=== PATIENT | male | born 1965 | race Caucasian/White ===

== ENCOUNTER 2017-03-15 17:30 | Inpatient (IN) ==
[2017-03-15] MEDS ORDERED: 0.9 % Sodium Chloride 1,000 ML IVC ONE ×5 (17:53→22:22)
[2017-03-15] MEDS ORDERED: *HR* Morphine 2 MG/ML SYRINGE IVP ONE ×2 (18:39→20:00)
[2017-03-15] MEDS ORDERED: Ondansetron 4 MG/2 ML VIAL IVP ONE (18:39)
[2017-03-15 18:46] LABS: Hematocrit 52.1 % (37.5-50.1); Hemoglobin 18.1 g/dL (12.9-16.9); Mean Corpuscular HGB Conc 34.7 g/dL (31.6-35.5); Mean Corpuscular Hemoglobin 30.4 pg (28.0-33.3); Mean Corpuscular Volume 87.4 fL (83.0-100.0); Mean Platelet Volume 9.3 fL (9.4-12.4); Platelet Count 205 K/mcL (140-400); Red Blood Count 5.96 M/mcL (4.19-5.50); Red Cell Distribution Width 12.2 % (11.5-14.5)
[2017-03-15 19:04] LABS: Alanine Aminotransferase 22 Units/L (0-55); Albumin 3.3 g/dL (3.5-5.0); Albumin/Globulin Ratio 0.9 (1.1-2.2); Alkaline Phosphatase 61 Units/L (38-126); Aspartate Amino Transferase 18 Units/L (5-34); BUN/Creatinine Ratio 18 (6-26); Bilirubin,Direct 0.5 mg/dL (0.0-0.5); Bilirubin,Indirect 0.5 mg/dL (0.0-1.2); Blood Urea Nitrogen 21 mg/dL (8-26); Calcium 9.1 mg/dL (8.6-10.8); Carbon Dioxide 20 mEq/L (19-29); Chloride 94 mEq/L (98-109); Globulin 3.7 g/dL (2.4-3.5); Glucose 146 mg/dL (70-99); Osmolality,Calculated 272 (280-300); Potassium 3.9 mEq/L (3.5-4.5); Sodium 128 mEq/L (136-145); eGFR For African Americans > 60 (> 60); eGFR For Non-African Americans > 60 (> 60)
[2017-03-15 19:05] LABS: C-Reactive Protein 225 mg/L (Less than 5)
[2017-03-15] MEDS ORDERED: Aspirin 81 MG TAB.CHEW PO STA (19:06)
--- NOTE | 2017-03-15 19:20 | Emergency Department Note ---
Disposition Clinical Impression: SIRS (systemic inflammatory response syndrome), Fever of unknown origin, Elevated troponin, Lactic acidosis, Leukocytosis, unspecified, Sinus tachycardia , Myalgia Disposition: Admitted As Inpatient Condition: Fair General Adult HPI - General Chief complaint: ED General Medical Stated complaint: Headache, having a hard time walking, fever Time Seen by Provider: 03/15/17 17:47 Source: patient, family Limitations: no limitations Nursing Notes Reviewed: Yes Vital Signs Reviewed: Yes - History of Present Illness Pain Scale: 10 - Related Data Home Medications Medication Instructions Recorded Confirmed Acetaminophen [Tylenol] 650 mg PO Q6HR PRN 03/15/17 03/15/17 Aspirin Enteric Coated [Aspirin EC] 81 mg PO DAILY 03/15/17 03/15/17 Allergies Allergy/AdvReac Type Severity Reaction Status Date / Time Anthrax Vaccine Allergy Swelling Verified 09/27/15 08:46 of Lip/Tongue/Throat Penicillins [PCN] Allergy Hives Verified 09/27/15 08:46 Past Medical History - Past Medical History Medical history: Reports: no medical history Surgical history: Reports: appendectomy Psychiatric history: Reports: anxiety - Social History Smoking Status: Former smoker Smokeless Tobacco Status: No Alcohol use: Reports: none Drug use: Reports: none Physical Exam - General Limitations: no limitations General appearance: alert, in no apparent distress Course - Reevaluation(s) Reevaluation #1: Patient is a 51-year-old white male is brought in by his today for reports of "not feeling well" since Wednesday evening. Patient denies any medical history except for some chronic low back pain for which she takes Vicodin prescribed by his family doctor. Patient states that he was seen earlier today in the urgent care and was diagnosed with possible strep pharyngitis as well as bronchitis. Patient was prescribed Amoxil. Patient denies having any nasal congestion, no sore throat, no cough. Patient reports subjective fevers at home with chills, reports she checked his temperature yesterday and it was T-Max equals 104 degrees. Patient just complains of generalized body aches bilateral hip pain and generalized low back pain. Patient denies any cold or cough symptoms, does complain of general malaise and fatigue. Patient denies any form of chest pain pressure or heaviness, no shortness of breath but states that he feels like his "lungs are burning", patient describes it as if he is outside on a really cold day and when you breathe in and have a burning sensation in her throat this is what he feels like. Patient denies any abdominal pain back or flank pain, no urinary symptoms, no bowel changes. Patient did have 1 isolated episode of nonbloody nonbilious emesis yesterday while he was taking a shower. Patient is very vague with his symptoms and the only thing he repeatedly complains of is generalized body aches and hip pain. Patient is tachycardic and hypotensive on arrival to the ED and has received 1 L of fluids with improvement in his blood pressure to 97 systolic. Patient receiving a second liter of fluids at this time in obtaining a second line general labs including cultures have been ordered including chest x-ray and EKG. Reevaluation #2: Was notified by lab of patient's elevated troponin at 0.3. Went to immediately reassessed the patient, patient resting comfortably at bedside and currently denies any form of chest pain pressure or heaviness. Patient still describes this burning sensation in his throat with breathing but denies actual shortness of breath. Repeat EKG was obtained which shows sinus tachycardia at 119 bpm left axis deviation and poor R-wave progression across the anterior leads possible old septal changes and on repeat EKG similar findings but on repeat showing some mild ST depression in the inferior leads. Awaiting remainder of labs. Patient receiving baby aspirin at this time and denying chest pain or pressure. Time: 19:23 Reevaluation #3: Patient's blood pressure is responding to IV fluids. Patient's systolic blood pressure on my assessment is 103 and 30 L infusing currently. IV antibiotics, broad-spectrum has been initiated with unclear etiology 2 possible infection. Repeat lactate is starting to trend downward. I first contacted cardiology and spoke with Dr. Morel, I discussed the case with him including patient's elevated troponin, abnormal second EKG, as well as patient with no complaints of chest pain throughout his ED course. Dr. Morel feels most likely viral etiology versus early sepsis and recommends serial troponins and he will consult on the patient. I spoke Dr. Morel at 8:35 PM area and then spoke with Dr. Dill, hospitalist, at 8:53 PM and discussed patient's case as possible early sepsis with unknown etiology. On speculum antibiotics IV of been initiated, blood cultures and urine cultures been obtained and is pending, patient is responding to IV fluids. Hospitalist agrees with management up to this point and also notified them of cardiology consult from the ED. Hospitalist accepted patient for admission. Patient's condition remains tenuous at this point, we will continue to monitor vitals while in the ED. Vital Signs Temperature 98.2 F 03/15/17 17:33 Pulse Rate 122 03/15/17 17:33 Respiratory Rate 18 03/15/17 17:33 Blood Pressure 82/58 03/15/17 17:33 O2 Sat by Pulse Oximetry 99 03/15/17 17:33 Temperature 99.2 F 03/15/17 22:44 Pulse Rate 111 03/15/17 22:44 Respiratory Rate 16 03/15/17 22:44 Blood Pressure 109/74 03/15/17 22:44 O2 Sat by Pulse Oximetry 97 03/15/17 22:44 Oxygen Delivery Oxygen Delivery Room Air Medical Decision Making - Lab Data Result diagrams: 03/15/17 18:20 03/15/17 18:20 Lab Results 03/15/17 03/15/17 03/15/17 Range/Units 18:20 18:20 18:20 WBC 18.5 H (4.3-11.1) K/mcL RBC 5.96 H (4.19-5.50) M/mcL Hgb 18.1 H (12.9-16.9) g/dL Hct 52.1 H (37.5-50.1) % MCV 87.4 (83.0-100.0) fL MCH 30.4 (28.0-33.3) pg MCHC 34.7 (31.6-35.5) g/dL RDW 12.2 (11.5-14.5) % Plt Count 205 (140-400) K/mcL MPV 9.3 L (9.4-12.4) fL Seg Neutrophils % 74.0 % Band Neutrophils % 24.0 H (0-4) % Lymphocytes % 2.0 % Neutrophils # 18.1 H (1.6-8.9) K/mcL Lymphocytes # 0.4 L (0.6-4.6) K/mcL Platelet Estimate Normal (Normal) ESR (0-10) mm/hr Sodium 128 L (136-145) mEq/L Potassium 3.9 (3.5-4.5) mEq/L Chloride 94 L (98-109) mEq/L Carbon Dioxide 20 (19-29) mEq/L BUN 21 (8-26) mg/dL Creatinine 1.16 (0.72-1.25) mg/dL Est GFR ( Amer) > 60 (> 60) Est GFR (Non-Af Amer) > 60 (> 60) BUN/Creatinine Ratio 18 (6-26) Glucose 146 H (70-99) mg/dL Calculated Osmolality 272 L (280-300) Lactic Acid (0.5-2.2) mmol/L Calcium 9.1 (8.6-10.8) mg/dL Total Bilirubin 1.0 (0.2-1.2) mg/dL Direct Bilirubin 0.5 (0.0-0.5) mg/dL Indirect Bilirubin 0.5 (0.0-1.2) mg/dL AST 18 (5-34) Units/L ALT 22 (0-55) Units/L Alkaline Phosphatase 61 (38-126) Units/L Creatine Kinase 252 H (30-200) Units/L Troponin I 0.30 H* (0-0.03) ng/mL C-Reactive Protein 225 H (Less than 5) mg/L Serum Total Protein 7.0 (6.0-8.3) g/dL Albumin 3.3 L (3.5-5.0) g/dL Globulin 3.7 H (2.4-3.5) g/dL Albumin/Globulin Ratio 0.9 L (1.1-2.2) Infectious Iroquois Assay (Negative) 03/15/17 03/15/17 03/15/17 Range/Units 18:20 18:20 19:38 WBC (4.3-11.1) K/mcL RBC (4.19-5.50) M/mcL Hgb (12.9-16.9) g/dL Hct (37.5-50.1) % MCV (83.0-100.0) fL MCH (28.0-33.3) pg MCHC (31.6-35.5) g/dL RDW (11.5-14.5) % Plt Count (140-400) K/mcL MPV (9.4-12.4) fL Seg Neutrophils % % Band Neutrophils % (0-4) % Lymphocytes % % Neutrophils # (1.6-8.9) K/mcL Lymphocytes # (0.6-4.6) K/mcL Platelet Estimate (Normal) ESR 33 H (0-10) mm/hr Sodium (136-145) mEq/L Potassium (3.5-4.5) mEq/L Chloride (98-109) mEq/L Carbon Dioxide (19-29) mEq/L BUN (8-26) mg/dL Creatinine (0.72-1.25) mg/dL Est GFR ( Amer) (> 60) Est GFR (Non-Af Amer) (> 60) BUN/Creatinine Ratio (6-26) Glucose (70-99) mg/dL Calculated Osmolality (280-300) Lactic Acid 2.9 H (0.5-2.2) mmol/L Calcium (8.6-10.8) mg/dL Total Bilirubin (0.2-1.2) mg/dL Direct Bilirubin (0.0-0.5) mg/dL Indirect Bilirubin (0.0-1.2) mg/dL AST (5-34) Units/L ALT (0-55) Units/L Alkaline Phosphatase (38-126) Units/L Creatine Kinase (30-200) Units/L Troponin I (0-0.03) ng/mL C-Reactive Protein (Less than 5) mg/L Serum Total Protein (6.0-8.3) g/dL Albumin (3.5-5.0) g/dL Globulin (2.4-3.5) g/dL Albumin/Globulin Ratio (1.1-2.2) Infectious [place]quois Assay Negative (Negative) 03/15/17 03/15/17 Range/Units 21:10 21:10 WBC (4.3-11.1) K/mcL RBC (4.19-5.50) M/mcL Hgb (12.9-16.9) g/dL Hct (37.5-50.1) % MCV (83.0-100.0) fL MCH (28.0-33.3) pg MCHC (31.6-35.5) g/dL RDW (11.5-14.5) % Plt Count (140-400) K/mcL MPV (9.4-12.4) fL Seg Neutrophils % % Band Neutrophils % (0-4) % Lymphocytes % % Neutrophils # (1.6-8.9) K/mcL Lymphocytes # (0.6-4.6) K/mcL Platelet Estimate (Normal) ESR (0-10) mm/hr Sodium (136-145) mEq/L Potassium (3.5-4.5) mEq/L Chloride (98-109) mEq/L Carbon Dioxide (19-29) mEq/L BUN (8-26) mg/dL Creatinine (0.72-1.25) mg/dL Est GFR ( Amer) (> 60) Est GFR (Non-Af Amer) (> 60) BUN/Creatinine Ratio (6-26) Glucose (70-99) mg/dL Calculated Osmolality (280-300) Lactic Acid 2.7 H (0.5-2.2) mmol/L Calcium (8.6-10.8) mg/dL Total Bilirubin (0.2-1.2) mg/dL Direct Bilirubin (0.0-0.5) mg/dL Indirect Bilirubin (0.0-1.2) mg/dL AST (5-34) Units/L ALT (0-55) Units/L Alkaline Phosphatase (38-126) Units/L Creatine Kinase (30-200) Units/L Troponin I 0.55 H* (0-0.03) ng/mL C-Reactive Protein (Less than 5) mg/L Serum Total Protein (6.0-8.3) g/dL Albumin (3.5-5.0) g/dL Globulin (2.4-3.5) g/dL Albumin/Globulin Ratio (1.1-2.2) Infectious Iroquois Assay (Negative) Critical Care Time Critical Care Time: Yes Total Critical Care Time: 60 Attestation: The high probability of a clinically significant, sudden or life threatening deterioration of the [CV] system(s) required my full and direct attention, intervention and personal management. The aggregate critical care time was [60] minutes. This time is in addition to time spent performing reported procedures but includes the following: [X] Data Review and interpretation [X] Patient assessment and monitoring of vital signs [X] Documentation [X] Medication orders and management S.B.AGetachew. - S.B.A.R. Transition of Care: D/W Dr. Morel regarding elevated troponin and abnormal repeat EKG. Patient with no current chest pain and has not had chest pain throughout his ED course. Patient has had intermittent complaints of epigastric pain. Reviewed patient' s results with Dr. Morel and discussed the patient's case by phone, feels that this most likely is due to a viral etiology and was willing to consult on the patient and recommended cycling his enzymes and continued monitoring. Discussed with him at 8:35 PM Attestation Statement - Attestation Attestation: I personally interviewed and examined this patient and my medical decision- making was reviewed with the Resident Physician, Dr. Henley. I agree with the documented findings, disposition and treatment plan as described except to the extent set forth below. Neck agree with her physical exam findings assessment and management of this patient as documented. Patient with likely sepsis with unclear etiology, blood pressure improved following fluid bolus, cultures pending, broad-spectrum IV antibiotics were initiated in the ED. Serial lactate and troponin were obtained in the ED. Cardiology was consult from the ED regarding patient's status and lab results. Discussed case with hospitalist who agrees with current management and accepted patient for admission for further evaluation and treatment.
[2017-03-15 19:27] LABS: Lymphocytes # 0.4 K/mcL (0.6-4.6); Neutrophils # 18.1 K/mcL (1.6-8.9)
[2017-03-15 19:28] LABS: Platelet Estimate Normal (Normal)
--- NOTE | 2017-03-15 19:34 | Emergency Department Note ---
Disposition Clinical Impression: SIRS (systemic inflammatory response syndrome), Fever of unknown origin, Elevated troponin, Lactic acidosis, Leukocytosis, unspecified, Sinus tachycardia , Myalgia Disposition: Admitted As Inpatient Condition: Fair Time of Disposition: 21:15 Fever HPI - General Chief Complaint: ED General Medical Stated Complaint: Headache, having a hard time walking, fever Time Seen by Provider: 03/15/17 17:47 Source: patient, family Limitations: no limitations - History of Present Illness HPI Narrative: Patient is a 51 old male who presents complaining of 2 day history of fever, chills, and diaphoresis. Patient states that he awoke in the middle of the night with fever of 104 with associated chills and hallucinations. Patient states that onset began with feeling extreme fatigue on Wednesday night, which caused his knees to buckle. Patient complains of generalized weakness. He states that yesterday he his "lungs felt funny". He states that his throat hurts when he takes a deep breath like the sensation of breathing in on a cold day. Patient also admits to chest pain to left sternum today described as a sharp, stabbing pain. Chest pain has since ceased. Patient also complains of shortness of breath without cough or congestion. Patient states that he had one episode of vomiting yesterday. He complains of bilateral testicular pain, but denies dysuria or hematuria. Complains of bilateral hip pain and back pain. Hip pain is preventing him from walking. Denies skin rash. - Related Data Home Medications Medication Instructions Recorded Confirmed Acetaminophen [Tylenol] 650 mg PO Q6HR PRN 03/15/17 03/15/17 Aspirin Enteric Coated [Aspirin EC] 81 mg PO DAILY 03/15/17 03/15/17 Allergies Allergy/AdvReac Type Severity Reaction Status Date / Time Anthrax Vaccine Allergy Swelling Verified 09/27/15 08:46 of Lip/Tongue/Throat Penicillins [PCN] Allergy Hives Verified 09/27/15 08:46 All systems ED: reviewed and negative except as stated. Constitutional: Reports: as per HPI Eyes: Reports: as per HPI ENT ED: Reports: as per HPI Cardiovascular: Reports: as per HPI Respiratory: Reports: as per HPI Gastrointestinal: Reports: as per HPI Genitourinary: Reports: as per HPI Musculoskeletal: Reports: as per HPI Integumentary: Reports: as per HPI Neurological: Reports: as per HPI Psychiatric: Reports: as per HPI Endocrine: Reports: as per HPI Hematological/Lymphatic: Reports: as per HPI Allergic/Immunologic: Reports: as per HPI Fever PMH - Past Medical History Medical history: Reports: no medical history Surgical history: Reports: appendectomy, orthopedic, other (hand surgery), other (sinus surgery, salivary gland surgery) Psychiatric history: Reports: anxiety - Social History Smoking Status: Former smoker Alcohol use: Reports: none Drug use: Reports: none Physical Exam - General Limitations: no limitations General appearance: alert, in no apparent distress - Head Head exam: atraumatic, normocephalic - Eye Eye exam: Present: normal appearance, EOMI. Absent: scleral icterus, conjunctival injection - ENT ENT exam: mucous membranes moist - Neck Neck exam: Present: normal inspection, full ROM, trachea midline. Absent: tenderness, lymphadenopathy, thyromegaly - Chest Chest inspection: Present: normal inspection, symmetric chest wall rise. Absent : tenderness, rash - Respiratory Respiratory exam: Present: normal lung sounds bilaterally. Absent: respiratory distress, wheezes, stridor - Cardiovascular Cardiovascular exam: Present: normal rhythm, tachycardia, +S1, +S2. Absent: systolic murmur (no murmur appreciated), diastolic murmur - Abdominal Exam Abdominal exam: Present: soft, tenderness, normal bowel sounds. Absent: distention, guarding, rigidity Abdominal tenderness: Present: epigastrium - Male exam: Present: normal inspection, normal testicular lie. Absent: lesions, induration, erythema, testicular tenderness - Expanded Lower Extremity Exam Hip/Pelvis exam: Present: normal inspection, tenderness (mild TTP to bilateral hips). Absent: full ROM (Severe bilateral hip pain to passive flexion), swelling, abrasion, laceration, ecchymosis, deformity, crepitus, dislocation, erythema Upper leg exam: Present: normal inspection. Absent: tenderness, swelling, abrasion, laceration, ecchymosis, deformity, crepitus, dislocation, erythema Knee exam: Present: normal inspection, full ROM. Absent: tenderness, swelling, abrasion, laceration, ecchymosis, deformity, crepitus, erythema Lower leg exam: Present: normal inspection, full ROM. Absent: tenderness, swelling, abrasion, laceration, ecchymosis, deformity, crepitus, erythema Ankle exam: Present: normal inspection, full ROM Foot/toe exam: Present: normal inspection, full ROM Neurovascular/Tendon exam: Present: normal capillary refill Gait: not tested/not observed - Back Exam Back exam: Present: tenderness, muscle spasm, paraspinal tenderness (to lower thoracic and lumbar spine) - Neurological Exam Neurological exam: Present: oriented X3, CN II-XII intact, other (negative Brudzinski's sign) - Psychiatric Psychiatric exam: Present: anxious - Skin Skin exam: Present: warm, dry, intact, normal color. Absent: rash, erythema Course Vital Signs Temperature 98.2 F 03/15/17 17:33 Pulse Rate 122 03/15/17 17:33 Respiratory Rate 18 03/15/17 17:33 Blood Pressure 82/58 03/15/17 17:33 O2 Sat by Pulse Oximetry 99 03/15/17 17:33 Temperature 98.2 F 03/15/17 17:33 Pulse Rate 110 03/15/17 19:19 Respiratory Rate 18 03/15/17 19:19 Blood Pressure 99/67 03/15/17 19:19 O2 Sat by Pulse Oximetry 98 03/15/17 19:19 Oxygen Delivery Oxygen Delivery Room Air Fever - MDM Narrative Medical decision making narrative: Patient presented with complaint of fever, fatigue, generalized weakness. On physical exam patient demonstrates weakness and extreme pain to bilateral hips on passive flexion. Patient has remained hypotensive and tachycardic despite 3 L of fluids. Despite the fact that patient has been afebrile since presentation to the hospital patient has a picture of SIRS given leukocytosis, elevated lactic acid. Patient also had elevated troponin of 0.30. However he denies chest pain at this time. Blood cultures, urine cultures have been collected. Chest x-ray is negative for infiltrate or effusion. Given picture of SIRS, we will treat patient with IV vancomycin and IV cefepime. He has been accepted by the hospitalist team. - Lab Data Result diagrams: 03/15/17 18:20 03/15/17 18:20 Lab Results 03/15/17 03/15/17 03/15/17 Range/Units 18:20 18:20 18:20 WBC 18.5 H (4.3-11.1) K/mcL RBC 5.96 H (4.19-5.50) M/mcL Hgb 18.1 H (12.9-16.9) g/dL Hct 52.1 H (37.5-50.1) % MCV 87.4 (83.0-100.0) fL MCH 30.4 (28.0-33.3) pg MCHC 34.7 (31.6-35.5) g/dL RDW 12.2 (11.5-14.5) % Plt Count 205 (140-400) K/mcL MPV 9.3 L (9.4-12.4) fL Seg Neutrophils % 74.0 % Band Neutrophils % 24.0 H (0-4) % Lymphocytes % 2.0 % Neutrophils # 18.1 H (1.6-8.9) K/mcL Lymphocytes # 0.4 L (0.6-4.6) K/mcL Platelet Estimate Normal (Normal) ESR (0-10) mm/hr Sodium 128 L (136-145) mEq/L Potassium 3.9 (3.5-4.5) mEq/L Chloride 94 L (98-109) mEq/L Carbon Dioxide 20 (19-29) mEq/L BUN 21 (8-26) mg/dL Creatinine 1.16 (0.72-1.25) mg/dL Est GFR ( Amer) > 60 (> 60) Est GFR (Non-Af Amer) > 60 (> 60) BUN/Creatinine Ratio 18 (6-26) Glucose 146 H (70-99) mg/dL Calculated Osmolality 272 L (280-300) Lactic Acid (0.5-2.2) mmol/L Calcium 9.1 (8.6-10.8) mg/dL Total Bilirubin 1.0 (0.2-1.2) mg/dL Direct Bilirubin 0.5 (0.0-0.5) mg/dL Indirect Bilirubin 0.5 (0.0-1.2) mg/dL AST 18 (5-34) Units/L ALT 22 (0-55) Units/L Alkaline Phosphatase 61 (38-126) Units/L Creatine Kinase 252 H (30-200) Units/L Troponin I 0.30 H* (0-0.03) ng/mL C-Reactive Protein 225 H (Less than 5) mg/L Serum Total Protein 7.0 (6.0-8.3) g/dL Albumin 3.3 L (3.5-5.0) g/dL Globulin 3.7 H (2.4-3.5) g/dL Albumin/Globulin Ratio 0.9 L (1.1-2.2) Infectious Lyon Assay (Negative) 03/15/17 03/15/17 03/15/17 Range/Units 18:20 18:20 19:38 WBC (4.3-11.1) K/mcL RBC (4.19-5.50) M/mcL Hgb (12.9-16.9) g/dL Hct (37.5-50.1) % MCV (83.0-100.0) fL MCH (28.0-33.3) pg MCHC (31.6-35.5) g/dL RDW (11.5-14.5) % Plt Count (140-400) K/mcL MPV (9.4-12.4) fL Seg Neutrophils % % Band Neutrophils % (0-4) % Lymphocytes % % Neutrophils # (1.6-8.9) K/mcL Lymphocytes # (0.6-4.6) K/mcL Platelet Estimate (Normal) ESR 33 H (0-10) mm/hr Sodium (136-145) mEq/L Potassium (3.5-4.5) mEq/L Chloride (98-109) mEq/L Carbon Dioxide (19-29) mEq/L BUN (8-26) mg/dL Creatinine (0.72-1.25) mg/dL Est GFR ( Amer) (> 60) Est GFR (Non-Af Amer) (> 60) BUN/Creatinine Ratio (6-26) Glucose (70-99) mg/dL Calculated Osmolality (280-300) Lactic Acid 2.9 H (0.5-2.2) mmol/L Calcium (8.6-10.8) mg/dL Total Bilirubin (0.2-1.2) mg/dL Direct Bilirubin (0.0-0.5) mg/dL Indirect Bilirubin (0.0-1.2) mg/dL AST (5-34) Units/L ALT (0-55) Units/L Alkaline Phosphatase (38-126) Units/L Creatine Kinase (30-200) Units/L Troponin I (0-0.03) ng/mL C-Reactive Protein (Less than 5) mg/L Serum Total Protein (6.0-8.3) g/dL Albumin (3.5-5.0) g/dL Globulin (2.4-3.5) g/dL Albumin/Globulin Ratio (1.1-2.2) Infectious Lyon Assay Negative (Negative) 03/15/17 03/15/17 Range/Units 21:10 21:10 WBC (4.3-11.1) K/mcL RBC (4.19-5.50) M/mcL Hgb (12.9-16.9) g/dL Hct (37.5-50.1) % MCV (83.0-100.0) fL MCH (28.0-33.3) pg MCHC (31.6-35.5) g/dL RDW (11.5-14.5) % Plt Count (140-400) K/mcL MPV (9.4-12.4) fL Seg Neutrophils % % Band Neutrophils % (0-4) % Lymphocytes % % Neutrophils # (1.6-8.9) K/mcL Lymphocytes # (0.6-4.6) K/mcL Platelet Estimate (Normal) ESR (0-10) mm/hr Sodium (136-145) mEq/L Potassium (3.5-4.5) mEq/L Chloride (98-109) mEq/L Carbon Dioxide (19-29) mEq/L BUN (8-26) mg/dL Creatinine (0.72-1.25) mg/dL Est GFR ( Amer) (> 60) Est GFR (Non-Af Amer) (> 60) BUN/Creatinine Ratio (6-26) Glucose (70-99) mg/dL Calculated Osmolality (280-300) Lactic Acid 2.7 H (0.5-2.2) mmol/L Calcium (8.6-10.8) mg/dL Total Bilirubin (0.2-1.2) mg/dL Direct Bilirubin (0.0-0.5) mg/dL Indirect Bilirubin (0.0-1.2) mg/dL AST (5-34) Units/L ALT (0-55) Units/L Alkaline Phosphatase (38-126) Units/L Creatine Kinase (30-200) Units/L Troponin I 0.55 H* (0-0.03) ng/mL C-Reactive Protein (Less than 5) mg/L Serum Total Protein (6.0-8.3) g/dL Albumin (3.5-5.0) g/dL Globulin (2.4-3.5) g/dL Albumin/Globulin Ratio (1.1-2.2) Infectious Lyon Assay (Negative)
[2017-03-15 20:13] LABS: Creatine Kinase 252 Units/L (30-200)
[2017-03-15] MEDS ORDERED: Vancomycin 2,000 MG in D5% in Water 500 ML IVPB ONE (21:00)
[2017-03-15] MEDS ORDERED: Ibuprofen 400 MG TABLET PO PRN (21:25)
[2017-03-15] MEDS ORDERED: *HR* Morphine 2 MG/ML SYRINGE IVP PRN (21:25)
[2017-03-15] MEDS ORDERED: Ondansetron ODT 4 MG TAB.RAPDIS SL PRN (21:25)
[2017-03-15] MEDS ORDERED: Naloxone 0.4 MG/ML INJ IVP PRN (21:25)
--- NOTE | 2017-03-15 21:45 | Internal Med History&Physical ---
<Mary Guthrie M - Last Filed: 03/15/17 23:14> Date of Encounter: 03/15/17 Time of Encounter: 21:41 Assessment and Plan (1) Severe sepsis Current visit: Yes Status: Acute Fever, malaise, body aches. Patient tachycardic and hypotensive, with lactate 2.9. Patient continues to be hypotensive with BP 90s/50s despite receiving 2- 3L of fluid bolus in ED. CXR negative for acute abnormality. 2L fluid bolus in addition to 3L in ED 0.9NS at 150mL/hr continuous personalized living manager nurse blood cultures drawn and sent. strep, flu swab ordered, UA ordered. [place] was negative Lactate recheck was 2.7 Broad spectrum antibiotics with Vanc and Cefepime IVPB. ibuprofen, norco and morphine PRN for body aches. (2) Fever of unknown origin Current visit: Yes Status: Acute CXR showed no acute cardiopulmonary disease. [place]ct[place] negative. Blood cultures drawn and sent UA ordered Flu swab, rapid strep ordered consider LP if other testing is not revealing. (3) Elevated troponin Current visit: Yes Status: Acute Troponin was 0.3. Patient complains of burning pain in chest and throat. Troponin and EKG discussed with Cardiology, who felt this was secondary to demand ischemia related to sepsis and infection and recommended cycling troponins. Patient did have a recent stress test which was negative. Continuous personalized living manager nurse. serial troponins. (4) DVT prophylaxis Current visit: Yes Status: Acute anti-embolic stockings Lovenox 40mg SQ daily Internal Medicine - H&P: HPI Chief complaint: fever, body aches Admitted From: Emergency Dept Plans for Post Hospital Care: Home History of present illness: Mr. Bennett is a 51 year old male with no significant past medical history presented to the emergency department today with complaints of fever and body aches. Patient reports his symptoms started on Wednesday and progressively worsened with a maximum temperature of 104. His body aches with hip pain and low back pain, he has headaches, he has burning in his throat and chest like heartburn, he has sweats and chills. He reports some nausea on and off and a poor appetite, he did throw up once yesterday. Denies any pain or burning with urination, denies any abdominal pain or diarrhea. Evaluation in the emergency department was significant for elevated white blood cell count of 18.5, he was tachycardic, hypotensive, consistent with sepsis. ESR was elevated to 33, CRP was elevated to 225. Troponin was also elevated to 0.3, cardiology was consulted and case was discussed and they felt this was secondary to his infection and recommended serial troponins. Lactate was elevated to 2.9 on recheck it was 2.7. Chest x-ray showed no acute cardiopulmonary disease. Urinalysis was not obtained yet as patient has not had any urine output. Blood cultures were drawn and sent, flu swab and rapid strep were ordered. [place] was negative. 3 L of fluid were ordered and on my assessment he had received at least 2. On exam, patient was alert and oriented, complaining of back pain. He reports the morphine helped with his hip pain but his back was still hurting him. Lungs are clear to auscultation bilaterally heart had regular, tachycardic rhythm. Abdomen was soft and nontender. Nontender CVA bilaterally. He is mildly diaphoretic. Past Med Surg Social Fam HX - Past Medical History Medical history: no medical history Psychiatric history: anxiety - Past Surgical History Surgical History: appendectomy, orthopedic, other (hand surgery), other (sinus surgery, salivary gland surgery) - Social History Smoking Status: Former smoker Smokeless Tobacco Status: No Alcohol use: none Drug use: none - Family History Mother Living Status: Cause of : E Hx Family Genitourinary Disorders: Yes (ESRD) Hx Family Endocrine Disorder: Yes (diabetes) Father Living Status: Still Living Hx Family Endocrine Disorder: Yes (diabetes) Internal Medicine - H&P: Meds Acetaminophen [Tylenol] 650 mg PO Q6HR PRN 03/15/17 [History] Aspirin Enteric Coated [Aspirin EC] 81 mg PO DAILY 03/15/17 [History] Allergies Anthrax Vaccine Allergy (Verified 09/27/15 08:46) Swelling of Lip/Tongue/Throat Penicillins [PCN] Allergy (Verified 09/27/15 08:46) Hives All Systems PM: A 10-system review of systems was performed and is negative for pertinent findings except as documented above in the HPI. - Constitutional Constitutional: anorexia, chills, fever(s), malaise, night sweats - EENT Eyes: no change in vision, no discharge, no pain, no photophobia Ears: no ear discharge, no ear pain, no tinnitus Nose, mouth and throat: sore throat, no dysphagia, no nasal discharge, no neck pain - Cardiovascular Cardiovascular ROS IM: chest pain (burning), no diaphoresis, no dyspnea, no lightheadedness, no palpitations, no syncope - Respiratory Respiratory: no cough, no dyspnea, no wheezing, no excessive phlegm production - Gastrointestinal Gastrointestinal: nausea, no abdominal pain, no diarrhea, no hematemesis, no hematochezia, no melena, no vomiting - Genitourinary Genitourinary ROS male: testicular pain, no dysuria - Musculoskeletal Musculoskeletal ROS IM: arthralgias (hip pain), back pain, no numbness, no tingling - Integumentary Integumentary IM: no rash, no unusual bruising - Neurological Neurological ROS: headache(s), no confusion, no convulsions, no focal weakness, no numbness, no tingling, no tremor(s) - Hematologic/Lymphatic Hematologic/Lymphatic: no easy bruising - Constitutional Vitals: Temp Pulse Resp BP Pulse Ox 98.2 F 110 18 99/67 98 03/15/17 17:33 03/15/17 19:19 03/15/17 19:19 03/15/17 19:19 03/15/17 19:19 General appearance: Present: mild distress, A&O X 3, pleasant - Head Head exam: Present: atraumatic, normocephalic - Eye Eye exam: Present: PERRL, conjuntiva pink, sclera anicteric Pupils: Present: PERRL - Neck Neck exam general surgery: Present: supple, trachea midline. Absent: lymphadenopathy - Respiratory Respiratory exam: Present: CTAB. Absent: accessory muscle use, rales, rhonchi, wheezes - Cardiovascular Cardiovascular exam: Present: RRR, +S1, +S2, tachycardia. Absent: diastolic murmur, gallop, rubs, systolic murmur - GI/Abdominal GI/Abdominal exam: Present: normal bowel sounds, soft, no peritoneal signs. Absent: distended, tenderness - Extremities Exam Extremities exam: Present: warm, radial pulses palpable and symetrical. Absent : calf tenderness, cyanotic, pedal edema - Neurological Exam Neurological exam: Present: CN II-XII intact, oriented X3, no focal deficits. Absent: facial droop, speech deficit - Skin Skin exam: Present: dry, intact Internal Med - H&P Results - Labs CBC & Chem 7: 03/15/17 18:20 03/15/17 18:20 Labs: All Lab Results (24 Hours) 03/15/17 03/15/17 03/15/17 Range/Units 18:20 18:20 18:20 WBC 18.5 H (4.3-11.1) K/mcL RBC 5.96 H (4.19-5.50) M/mcL Hgb 18.1 H (12.9-16.9) g/dL Hct 52.1 H (37.5-50.1) % MCV 87.4 (83.0-100.0) fL MCH 30.4 (28.0-33.3) pg MCHC 34.7 (31.6-35.5) g/dL RDW 12.2 (11.5-14.5) % Plt Count 205 (140-400) K/mcL MPV 9.3 L (9.4-12.4) fL Seg Neutrophils % 74.0 % Band Neutrophils % 24.0 H (0-4) % Lymphocytes % 2.0 % Neutrophils # 18.1 H (1.6-8.9) K/mcL Lymphocytes # 0.4 L (0.6-4.6) K/mcL Platelet Estimate Normal (Normal) ESR (0-10) mm/hr Sodium 128 L (136-145) mEq/L Potassium 3.9 (3.5-4.5) mEq/L Chloride 94 L (98-109) mEq/L Carbon Dioxide 20 (19-29) mEq/L BUN 21 (8-26) mg/dL Creatinine 1.16 (0.72-1.25) mg/dL Est GFR ( Amer) > 60 (> 60) Est GFR (Non-Af Amer) > 60 (> 60) BUN/Creatinine Ratio 18 (6-26) Glucose 146 H (70-99) mg/dL Calculated Osmolality 272 L (280-300) Lactic Acid (0.5-2.2) mmol/L Calcium 9.1 (8.6-10.8) mg/dL Total Bilirubin 1.0 (0.2-1.2) mg/dL Direct Bilirubin 0.5 (0.0-0.5) mg/dL Indirect Bilirubin 0.5 (0.0-1.2) mg/dL AST 18 (5-34) Units/L ALT 22 (0-55) Units/L Alkaline Phosphatase 61 (38-126) Units/L Creatine Kinase 252 H (30-200) Units/L Troponin I 0.30 H* (0-0.03) ng/mL C-Reactive Protein 225 H (Less than 5) mg/L Serum Total Protein 7.0 (6.0-8.3) g/dL Albumin 3.3 L (3.5-5.0) g/dL Globulin 3.7 H (2.4-3.5) g/dL Albumin/Globulin Ratio 0.9 L (1.1-2.2) Infectious [place] Assay (Negative) 03/15/17 03/15/17 03/15/17 Range/Units 18:20 18:20 19:38 WBC (4.3-11.1) K/mcL RBC (4.19-5.50) M/mcL Hgb (12.9-16.9) g/dL Hct (37.5-50.1) % MCV (83.0-100.0) fL MCH (28.0-33.3) pg MCHC (31.6-35.5) g/dL RDW (11.5-14.5) % Plt Count (140-400) K/mcL MPV (9.4-12.4) fL Seg Neutrophils % % Band Neutrophils % (0-4) % Lymphocytes % % Neutrophils # (1.6-8.9) K/mcL Lymphocytes # (0.6-4.6) K/mcL Platelet Estimate (Normal) ESR 33 H (0-10) mm/hr Sodium (136-145) mEq/L Potassium (3.5-4.5) mEq/L Chloride (98-109) mEq/L Carbon Dioxide (19-29) mEq/L BUN (8-26) mg/dL Creatinine (0.72-1.25) mg/dL Est GFR ( Amer) (> 60) Est GFR (Non-Af Amer) (> 60) BUN/Creatinine Ratio (6-26) Glucose (70-99) mg/dL Calculated Osmolality (280-300) Lactic Acid 2.9 H (0.5-2.2) mmol/L Calcium (8.6-10.8) mg/dL Total Bilirubin (0.2-1.2) mg/dL Direct Bilirubin (0.0-0.5) mg/dL Indirect Bilirubin (0.0-1.2) mg/dL AST (5-34) Units/L ALT (0-55) Units/L Alkaline Phosphatase (38-126) Units/L Creatine Kinase (30-200) Units/L Troponin I (0-0.03) ng/mL C-Reactive Protein (Less than 5) mg/L Serum Total Protein (6.0-8.3) g/dL Albumin (3.5-5.0) g/dL Globulin (2.4-3.5) g/dL Albumin/Globulin Ratio (1.1-2.2) Infectious [place] Assay Negative (Negative) 03/15/17 03/15/17 Range/Units 21:10 21:10 WBC (4.3-11.1) K/mcL RBC (4.19-5.50) M/mcL Hgb (12.9-16.9) g/dL Hct (37.5-50.1) % MCV (83.0-100.0) fL MCH (28.0-33.3) pg MCHC (31.6-35.5) g/dL RDW (11.5-14.5) % Plt Count (140-400) K/mcL MPV (9.4-12.4) fL Seg Neutrophils % % Band Neutrophils % (0-4) % Lymphocytes % % Neutrophils # (1.6-8.9) K/mcL Lymphocytes # (0.6-4.6) K/mcL Platelet Estimate (Normal) ESR (0-10) mm/hr Sodium (136-145) mEq/L Potassium (3.5-4.5) mEq/L Chloride (98-109) mEq/L Carbon Dioxide (19-29) mEq/L BUN (8-26) mg/dL Creatinine (0.72-1.25) mg/dL Est GFR ( Amer) (> 60) Est GFR (Non-Af Amer) (> 60) BUN/Creatinine Ratio (6-26) Glucose (70-99) mg/dL Calculated Osmolality (280-300) Lactic Acid 2.7 H (0.5-2.2) mmol/L Calcium (8.6-10.8) mg/dL Total Bilirubin (0.2-1.2) mg/dL Direct Bilirubin (0.0-0.5) mg/dL Indirect Bilirubin (0.0-1.2) mg/dL AST (5-34) Units/L ALT (0-55) Units/L Alkaline Phosphatase (38-126) Units/L Creatine Kinase (30-200) Units/L Troponin I 0.55 H* (0-0.03) ng/mL C-Reactive Protein (Less than 5) mg/L Serum Total Protein (6.0-8.3) g/dL Albumin (3.5-5.0) g/dL Globulin (2.4-3.5) g/dL Albumin/Globulin Ratio (1.1-2.2) Infectious [place] Assay (Negative) - Diagnostic Studies Chest x-ray Additional comments: Chest X-Ray 03/15/17 18:29 IMPRESSION: No acute cardiopulmonary findings D/ / Laura Ge MD / Laura Ge MD Interpreting Provider: Laura Ge MD <Leonard Aleman - Last Filed: 03/16/17 00:14> Date of Encounter: 03/15/17 Internal Medicine - H&P: HPI History of present illness: Mr. Bennett is a 51 year old male All Systems PM: A 10-system review of systems was performed and is negative for pertinent findings except as documented above in the HPI. - Constitutional Vitals: Temp Pulse Resp BP Pulse Ox 99.2 F 111 16 109/74 97 03/15/17 22:44 03/15/17 22:44 03/15/17 22:44 03/15/17 22:44 03/15/17 22:44 Internal Med - H&P Results - Labs CBC & Chem 7: 03/15/17 18:20 03/15/17 18:20 - Attending Attestation I examined this patient and my medical decision-making was reviewed with the Advanced Practice Nurse. I agree with the documented findings, disposition and treatment plan as described.
[2017-03-15] MEDS ORDERED: Baclofen 10 MG TABLET PO PRN (23:01)
[2017-03-15] MEDS: 0.9 % Sodium Chloride 1,000 ML IVC SCH (23:02)
[2017-03-16 00:13] LABS: Bilirubin,Urine Negative (Negative); Blood,Urine Negative (Negative); Clarity,Urine Clear (Clear); Color,Urine Dark Yellow (Yellow); Glucose,Urine (UA) Normal (Normal); Ketones,Urine Negative (Negative); Leukocyte Esterase,Urine Negative (Negative); Nitrite,Urine Negative (Negative); Protein,Urine 30 mg/dL (Neg-Trace); Specific Gravity,Urine > 1.030 (1.010-1.025); Urobilinogen,Urine Normal (Normal)
[2017-03-16 00:15] LABS: Squamous Epithelial Cell,Urine Many per lpf (None-Few); WBC,Urine 0-3 per hpf (0-3)
[2017-03-16 00:34] LABS: Mucus,Urine Moderate (Few)
[2017-03-16 00:35] LABS: Bacteria,Urine Few per hpf (None-Few); Hyaline Casts,Urine Few per lpf (None-Few)
[2017-03-16] MEDS: *HR* HYDROcodone/Acet 5/325 mg TABLET PO PRN ×3 (01:01→15:41)
[2017-03-16 01:30] LABS: Basophils % 0.2 %; Eosinophils # 0.2 K/mcL (0.0-0.6); Eosinophils % 1.4 %; Hematocrit 48.8 % (37.5-50.1); Hemoglobin 16.7 g/dL (12.9-16.9); Immature Granulocytes % 3.6 % (0-4); Lymphocytes # 0.6 K/mcL (0.6-4.6); Lymphocytes % 3.3 %; Mean Corpuscular HGB Conc 34.2 g/dL (31.6-35.5); Mean Corpuscular Hemoglobin 30.8 pg (28.0-33.3); Mean Platelet Volume 9.1 fL (9.4-12.4); Monocytes # 0.1 K/mcL (0.0-1.3); Monocytes % 0.5 %; Platelet Count 181 K/mcL (140-400); Red Blood Count 5.42 M/mcL (4.19-5.50); Red Cell Distribution Width 12.5 % (11.5-14.5)
[2017-03-16 01:33] LABS: Neutrophils # 15.3 K/mcL (1.6-8.9)
[2017-03-16 01:45] LABS: BUN/Creatinine Ratio 17 (6-26); Blood Urea Nitrogen 17 mg/dL (8-26); Calcium 7.9 mg/dL (8.6-10.8); Carbon Dioxide 24 mEq/L (19-29); Chloride 96 mEq/L (98-109); Glucose 136 mg/dL (70-99); Osmolality,Calculated 268 (280-300); Sodium 127 mEq/L (136-145); eGFR For African Americans > 60 (> 60); eGFR For Non-African Americans > 60 (> 60)
[2017-03-16 01:53] LABS: Platelet Estimate Normal (Normal)
[2017-03-16] MEDS ORDERED: 0.9 % Sodium Chloride 1,000 ML IVC ONE ×2 (02:24→03:54)
[2017-03-16] MEDS ORDERED: Ketorolac 30 MG/ML VIAL IVP ONE (02:30)
[2017-03-16] MEDS: Cefepime HCl 2,000 MG in D5% in Water (Mini-Bag+) 100 ML IVPB SCH ×4 (03:31→22:16)
[2017-03-16] MEDS ORDERED: *HR* Morphine 2 MG/ML SYRINGE IVP ONE (03:55)
--- NOTE | 2017-03-16 03:57 | Event Note ---
Date of Encounter: 03/16/17 Time of Encounter: 03:56 pt admitted with severe sepsis with unknown source has been c/o intractable back pain with hypotension, first such episode, we will get CT abd and pelvis for further eval
[2017-03-16] MEDS: *HR* Heparin 5,000 UNIT/ML VIAL SQ SCH ×3 (06:34→20:52)
[2017-03-16] MEDS ORDERED: traMADol 50 MG TABLET PO PRN ×3 (07:58→09:37)
[2017-03-16] MEDS: 0.9 % Sodium Chloride 1,000 ML IVC SCH ×3 (08:32→23:32)
--- NOTE | 2017-03-16 09:58 | ECHO - Doppler Report ---
Echocardiogram Name: Mick Bennett Date of Study: 03/16/2017 Date: 1965 Ht: 72.0 in Medical Record#: [id number] Age: 51 Wt: 222.0 lb Gender: Male BSA: 2.23 Order #: [id number] Location: [facility] Room #: [id number] Reading Physician: Terry Barahona MD, [facility] Rib Puller: [place] KAM Ordering Physician: Leonard Aleman MD Primary Physician: Cameron Chapin MD Indications: Sepsis, Wall motion abnormality Impressions: Sinus tachycardia. Heart rate was approximately 120 bpm throughout this exam. Normal LV systolic function, LVEF 55%. Moderate concentric left ventricular hypertrophy. Normal right ventricular structure and function. No significant valvular dysfunction. No evidence of pulmonary hypertension. Left Ventricular Wall Motion: Rest Echo Findings All wall segments showed normal motion. Findings: Study Quality * Technically adequate exam. ECG Findings * Sinus tachycardia. Heart rate was approximately 120 bpm throughout this exam. Left Ventricle * Normal LV systolic function, LVEF 55%. * Normal LV chamber size. * Moderate concentric left ventricular hypertrophy. * Indeterminate diastolic function due to sinus tachycardia with E/A fusion. Right Ventricle * Normal right ventricular structure and function. Left Atrium * Normal left atrial size. Right Atrium * Normal right atrial size. Aorta * Normally sized aortic root. Pericardium * There is a trivial pericardial effusion present. IVC * The IVC is not dilated. Tricuspid Valve * Normal tricuspid valve structure. * No tricuspid stenosis. * Trace tricuspid regurgitation. * No evidence of pulmonary hypertension. Pulmonic Valve * Normal pulmonic valve structure. * No pulmonic stenosis. * No pulmonic regurgitation. Mitral Valve * Normal mitral valve structure. * No mitral stenosis. * Trace mitral regurgitation. Aortic Valve * Trileaflet aortic valve. * No aortic stenosis. * No aortic regurgitation. History Family History of CAD Measurements: BP: 95/ 63 2D Normal Values RVIDd: 3.60 cm IVSd: 1.60 cm 0.6 - 1.0 cm LVIDd: 4.50 cm 3.7 - 5.6 cm LVPWd: 1.50 cm 0.6 - 1.1 cm LVIDs: 3.30 cm 1.5 - 3.6 cm AO: 3.40 cm < 4.0 cm LA volume: 57 Tricuspid Valve TV Regurg Peak Grad: 18.00mmHg TV Regurg Peak Angel: 2.10m/sec Updated by Terry Barahona MD, [facility] on 03/16/2017 9:53:32 AM electronically signed on 03/16/2017 9:53:49 AM with status of Final Wall Motion Tran: 1=Normal, 2=Hypokinesis, 3=Akinesis, 4=Dyskinesis, 5=Aneurysmal, 6=Hyperkinetic, X=Not Visualized (Blank)=Missing
--- NOTE | 2017-03-16 10:09 | Internal Med Progress Note ---
Date of Encounter: 03/16/17 Time of Encounter: 10:06 - Assessment and plan (1) Sepsis Current Visit: Yes Status: Acute Assessment and plan: presented with fever of 104 with tachycardia and leucocytosis. cxr and ua is clean, CT abdomen did not show any signs of infection mono assay is negative, ECHO does not have any signs of vegetation or abscess. no h/o recent travel, reports HIV negative, no skin rash or dental caries. will do CT of lumbosacral spine to r/o any epidural abscess, he has no h/o IVDA will also do CT brain, he may need LP if he continues to spike as we dont have a clear source, even though clinically seems less likely. after CT brain , will proceed with LP if needed. continue broad spectrum antibiotics, will follow blood cx results will order viral panel. Qualifiers: Sepsis type: sepsis due to unspecified organism Qualified Code(s): A41.9 - Sepsis, unspecified organism (2) Fever of unknown origin Current Visit: Yes Status: Acute Assessment and plan: as above (3) Elevated troponin Current Visit: Yes Status: Acute Assessment and plan: most likely demand ischemia 2/2 sepsis , denies any chest pain ECHO shows normal LVEF. less likely ACS> - Time Spent With Patient 25 - 35 minutes - Subjective Interval history: patient admitted for sepsis ,no obvious source, seen at the bedside this morning. c/o hip and back pain, he says unable to lie flat. temp of 100 and tachycardic, says he had headache initially which has now resolved. he denies nausea, vomiting, no abdominal pain or dysuria no chest pain, cough. alert and awake, oriented x3 - Constitutional Vitals: Temp Pulse Resp BP Pulse Ox 100 F H 130 16 95/63 97 03/16/17 07:20 03/16/17 07:20 03/16/17 07:20 03/16/17 07:20 03/16/17 07:20 General appearance: Present: mild distress, A&O X 3, pleasant Exam: neck- supple chest -b/l clear, no added sounds CVS-s1 and s2, no m/r/g abdomen- soft, non tender, bs are present, tenderness at the lumbo sacral region , no swelling or redness. ext- no edema or rash. neuro- no focal neuro defecits. Internal Medicine: Result - Labs CBC & Chem 7: 03/16/17 01:06 03/16/17 01:06 Labs: Short CBC 03/16/17 Range/Units 01:06 WBC 16.8 H (4.3-11.1) K/mcL Hgb 16.7 (12.9-16.9) g/dL Hct 48.8 (37.5-50.1) % Plt Count 181 (140-400) K/mcL Neutrophils # 15.3 H (1.6-8.9) K/mcL BMP 03/16/17 01:06 Sodium 127 L Potassium 4.0 Chloride 96 L Carbon Dioxide 24 BUN 17 Creatinine 1.00 Glucose 136 H Calcium 7.9 L Cardiac Enzymes 03/16/17 03/16/17 Range/Units 01:06 05:57 Troponin I 1.06 H* 1.89 H* (0-0.03) ng/mL Urine 03/16/17 Range/Units Unknown Urine Color Dark Yellow (Yellow) Urine Clarity Clear (Clear) Urine pH 6.0 (5.0-8.0) pH Units Ur Specific [place] > 1.030 H (1.010-1.025) Urine Protein 30 H (Neg-Trace) mg/dL Urine Glucose (UA) Normal (Normal) mg/dL - Impressions Impressions Abdomen/Pelvis CT 03/16/17 03:52 IMPRESSION: No acute abnormality. D/ / lA Warner MD / Al Warner MD Interpreting Provider: Al Warner MD Consult Discharge Plan - Plan Referrals: [facility] [place],Cameron Murray MD [Primary Care Provider] -
[2017-03-16] MEDS ORDERED: Ibuprofen 400 MG TABLET PO PRN (10:19)
--- NOTE | 2017-03-16 10:49 | Cardiology Consult Note ---
Date of Encounter: 03/16/17 Time of Encounter: 09:30 Assessment and Plan (1) Sepsis Current Visit: Yes Status: Acute Per cardiology: -Patient with sepsis from unknown source. -ON ATB. -Management per primary service. Qualifiers: Sepsis type: sepsis due to unspecified organism Qualified Code(s): A41.9 - Sepsis, unspecified organism (2) Fever of unknown origin Current Visit: Yes Status: Acute Per cardiology: -Fever at home reported to be 104, with reported halllucinations. -Temperature at [facility] 100. -On ATB, cultures drawn. -Management per primary service. (3) Elevated troponin Current Visit: Yes Status: Acute Per cardiology: -Troponin 0.3, 0.55, 1.06, 1.89. -Troponins elevated in the setting of sepsis, fever, and leukocytosis. -Echocardiogram with LVEF 55%, moderate concentric left ventricular hypertrophy , no significant valvular dysfunction, all ruiz with normal motion. -Patient had recent excercise stress test 10/2016 [facility] stress ECG negative for ischemia, excercise capacity was excellent, normal hemodynamic response to excercise, no arrhythmias noted. -Patient denies chest pain, denies excertional symptoms, denies shortness of breath. Patient admits to fatigue that started with generalized illness. -ECG with ST, HR 111, ST depression noted in inferior leads, however baseline ECG also with ST depression in inferior leads. ST Depression on this admissions ECG may be slightly more pronounced. ECG reviewed with Dr.John Morel. -Repeat troponin will be drawn around 1230. Discsussed with Dr.John Morel, if repeat troponin comes back further elevated, would not recommned [facility] at this time due to sepsis, febrile illness. Patient states understanding and agrees with plan. -Do not suspect NSTEMI, suspect demand ischemia related to sepsis, fever, and leukocytosis. NO cardiac rehab warranted at this time. -Further recommendations pending repeat troponin. (4) Lactic acidosis Current Visit: Yes Status: Acute Per cardiology: -Elevated lactic acidosis. -Management per primary service. (5) Sinus tachycardia Current Visit: Yes Status: Acute Per cardiology: -Sinus tachycardia noted. -Average HR 124. -Unable to give beta elly due to hypotension. -Suspect may be related to sepsis, febrile illness. -Will continue to monitor. Discussion w patient/family: The assessment and plan as outlined above was discussed with the patient who expressed understanding and agreement. All questions were answered. Thank you for involving us in the care of your patient. Please call with any questions. Discussed and reviewed with Dr.John Morel. History of Present Illness Consult date: 03/15/17 Requesting physician: Yessenia Person Consult reason: elevated troponin, abnormal ECG Chief complaint: "feeling ill" History of present illness: Mr. Bennett is a 51 year old male with a relevant past medical history of depression, anxiety, hypothyroidism. Patient states he had not been feeling well for the past couple of days. Patient states he presented to urgent care and was diagnosed with bronchitis and strep throat. Patient states he was started on ATB at urgent care. After urgent care visit, patient became increasingly sick with Temperature of 104. Patient states that his said he was hallucinating. Patient was taken to [facility] and was admitted. Patient diagnosed with severe sepsis, unknown origin. Cardiology was consulted for elevated troponin. Patient denies chest pain. However, he states his throat hurts when he takes a deep breath. Patient denies shortness of breath. Patient admits to fatigue that started with this generalized illness. Past Med Surg Social Fam HX - Past Medical History Attestation: Yes The following information was validated with the patient. Source: patient, old records reviewed Medical history: no medical history Psychiatric history: anxiety - Past Surgical History Surgical History: appendectomy - Social History Smoking Status: Former smoker Smokeless Tobacco Status: No Alcohol use: none Drug use: none - Family History Mother Living Status: Cause of : E Hx Family Genitourinary Disorders: Yes (ESRD) Hx Family Endocrine Disorder: Yes (diabetes) Father Living Status: Still Living Hx Family Endocrine Disorder: Yes (diabetes) Medications and Allergies Acetaminophen [Tylenol] 650 mg PO Q6HR PRN 03/15/17 [History] Aspirin Enteric Coated [Aspirin EC] 81 mg PO DAILY 03/15/17 [History] Allergies Anthrax Vaccine Allergy (Verified 09/27/15 08:46) Swelling of Lip/Tongue/Throat Penicillins [PCN] Allergy (Verified 09/27/15 08:46) Hives All Systems Review: A 10-system review of systems was performed and is negative for pertinent findings except as documented above in the HPI. - Constitutional Constitutional: fatigue, fever(s), weakness - EENT Nose, mouth and throat: sore throat - Cardiovascular Cardiovascular: as per HPI Physical Examination Vital Signs, Last 4 Hours Temp Pulse Resp BP Pulse Ox 03/16/17 07:20 100 F H 130 16 95/63 97 General: Conversant, No Apparent Distress HEENT: Atraumatic, Normocephaly, Mucus Membranes Moist Neck: No JVD, Normal carotid pulses Cardiac: Normal S1 and S2, No Murmur, Other (Tachycardic. ) Lungs: Normal Breath Sounds, No Wheeze, Rales, Rhonchi Neuro: Alert and responsive, No focal deficits noted Abdomen: Soft, Non-Tender Skin: No rashes noted on visualized skin Musculoskeletal: No Chest Wall Tenderness Extremities: No Clubbing, No Cyanosis, No Edema, Normal Pulses Results 03/16/17 01:06 03/16/17 01:06 Lab Results Impressions Chest X-Ray 03/15/17 18:29 IMPRESSION: No acute cardiopulmonary findings D/ / Laura Ge MD / Laura Ge MD Interpreting Provider: Laura Ge MD Abdomen/Pelvis CT 03/16/17 03:52 IMPRESSION: No acute abnormality. D/ / Al Warner MD / Al Warner MD Interpreting Provider: Al Warner MD Active Medications Acetaminophen/Hydrocodone Bitart ([place] 5-325 Mg) 1 tab PO Q4HR PRN PRN Reason: Moderate Pain (4-6) Stop: 09/14/17 21:26 Last Admin: 03/16/17 06:37 Dose: 1 tab Baclofen (Lioresal) 10 mg PO TID PRN PRN Reason: Spasms Stop: 09/14/17 23:02 Last Admin: 03/15/17 23:12 Dose: 10 mg Docusate Sodium (Colace) 100 mg PO BID PRN PRN Reason: Constipation Stop: 09/14/17 21:26 Heparin Sodium (Porcine) (Heparin) 5,000 unit SQ Q8HCO EFE Stop: 09/15/17 06:01 Last Admin: 03/16/17 06:34 Dose: 5,000 unit Cefepime HCl 2,000 mg/ (Dextrose) 100 mls @ 200 mls/hr IVPB Q8H [facility] Stop: 09/14/17 21:01 Last Admin: 03/16/17 06:34 Dose: 200 mls/hr Sodium Chloride (0.9 % Sodium Chloride) 1,000 mls @ 150 mls/hr IVC .Q6H40M [facility] Stop: 09/14/17 21:31 Last Admin: 03/16/17 08:32 Dose: 150 mls/hr Doxycycline Hyclate 100 mg/ (Sodium Chloride) 100 mls @ 100 mls/hr IVPB Q12HR [facility] Stop: 09/15/17 10:30 Ibuprofen (Motrin) 400 mg PO Q6HR PRN PRN Reason: Mild Pain (1-3)/Fever Stop: 09/14/17 21:26 Morphine Sulfate (Morphine Sulfate) 2 mg IVP Q4HR PRN PRN Reason: Severe Pain (7-10) Stop: 09/14/17 21:26 Naloxone HCl (Narcan) 0.4 mg IVP Q2MIN PRN PRN Reason: Opioid Reversal Stop: 09/14/17 21:26 Ondansetron HCl (Zofran Odt) 4 mg SL Q8HR PRN PRN Reason: Nausea And Vomiting Stop: 09/14/17 21:26 Last Admin: 03/16/17 01:01 Dose: 4 mg Tramadol HCl (Ultram) 50 mg PO Q4HR PRN PRN Reason: Moderate Pain (4-6) Stop: 09/15/17 07:59 Laboratory Tests 03/15/17 03/15/17 03/15/17 18:20 18:20 18:20 WBC 18.5 H Creatinine Lactic Acid Troponin I 0.30 H* C-Reactive Protein 225 H 03/15/17 03/15/17 03/16/17 19:38 21:10 01:06 WBC Creatinine Lactic Acid 2.9 H Troponin I 0.55 H* 1.06 H* C-Reactive Protein 03/16/17 03/16/17 03/16/17 01:06 01:06 05:57 WBC 16.8 H Creatinine 1.00 Lactic Acid Troponin I 1.89 H* C-Reactive Protein - Imaging and Cardiology Chest Xray: report reviewed Echo: report reviewed Other Results: CT abdomen report reviewed. - EKG Interpretation EKG results cardiology: personally reviewed (ECG reviewed with ST, HR 111, ST depression noted in leads II, III, and aVF, slightly more prominent than baseline ECG. Baseline ECG reviewed with ST depression noted in inferior leads also.), other (Telemetry reviewed with average HR 124, sinus tachycardia. No significant events noted.) Consult Discharge Plan - Plan Referrals: billy,Cameron Murray MD [Primary Care Provider] -
[2017-03-16] MEDS: Doxycycline 100 MG in 0.9 % Sodium Chloride Mini Bag 100 ML IVPB SCH ×2 (12:17→20:51)
[2017-03-16] MEDS ORDERED: *HR* Metoprolol 5 MG/5 ML VIAL IVP ONE (14:23)
[2017-03-16] MEDS ORDERED: 0.9 % Sodium Chloride 500 ML IVC ONE (14:24)
[2017-03-16] MEDS ORDERED: Ondansetron 4 MG/2 ML VIAL IVP PRN (14:37)
[2017-03-16] MEDS ORDERED: Vancomycin 1,500 MG in D5% in Water 250 ML IVPB SCH (16:00)
[2017-03-16] MEDS: *HR* OxyCODONE/APAP 10/325 TABLET PO PRN ×2 (16:49→21:23)
--- NOTE | 2017-03-16 16:55 | Electrocardiograph Report ---
[address] [place] [address] Test Date: 2017-03-15 Pat Name: Mick Bennett Department: 105 Room: 2A38 Gender: M Dean Of Girls: : 1965 Requested By: Franca Carballo Order Number: [id number] Reading MD: Lulu Morel Measurements Intervals [place] Rate: 111 P: 66 HI: 182 QRS: -54 QRSD: 91 T: -1 QT: 301 QTc: 367 Interpretive Statements SINUS TACHYCARDIA MARKED LEFT AXIS DEVIATION [QRS AXIS < -30] PATTERN CONSISTENT WITH PULMONARY DISEASE SEPTAL MYOCARDIAL INFARCTION [40+ ms Q WAVE IN V1/V2], OF INDETERMINATE AGE Electronically Signed On 03-16-2017 16:54:13 EDT by Lulu Morel
--- NOTE | 2017-03-16 16:55 | Electrocardiograph Report ---
[address] [place] [address] Test Date: 2017-03-15 Pat Name: Mick Bennett Department: 105 Room: 2A Gender: M Bag Sorter: : 1965 Requested By: Yessenia Person Order Number: [id number] Reading MD: Lulu Morel Measurements Intervals [place] Rate: 119 P: 73 NC: 180 QRS: -59 QRSD: 98 T: 13 QT: 292 QTc: 362 Interpretive Statements SINUS TACHYCARDIA MARKED LEFT AXIS DEVIATION [QRS AXIS < -30] PATTERN CONSISTENT WITH PULMONARY DISEASE SEPTAL MYOCARDIAL INFARCTION [40+ ms Q WAVE IN V1/V2], OF INDETERMINATE AGE Electronically Signed On 03-16-2017 16:54:02 EDT by Lulu Morel
[2017-03-16] MEDS ORDERED: Ondansetron 4 MG/2 ML VIAL IVP SCH (18:00)
[2017-03-16 18:37] LABS: Red Blood Cell,CSF < 0.002 M/mcL
[2017-03-16 18:40] LABS: Appearance,CSF Clear (Clear)
[2017-03-16 19:02] LABS: Glucose,CSF 73 mg/dL (40-70); Total Protein,CSF 40 mg/dL (15-45)
[2017-03-17] MEDS: *HR* OxyCODONE/APAP 10/325 TABLET PO PRN (04:20)
[2017-03-17] MEDS: Cefepime HCl 2,000 MG in D5% in Water (Mini-Bag+) 100 ML IVPB SCH (04:23)
[2017-03-17] MEDS ORDERED: Vancomycin 1,500 MG in D5% in Water 250 ML IVPB SCH (04:30)
[2017-03-17 04:48] LABS: Hematocrit 49.8 % (37.5-50.1); Hemoglobin 17.1 g/dL (12.9-16.9); Mean Corpuscular HGB Conc 34.3 g/dL (31.6-35.5); Mean Corpuscular Volume 90.2 fL (83.0-100.0); Mean Platelet Volume 9.7 fL (9.4-12.4); Platelet Count 239 K/mcL (140-400); Red Blood Count 5.52 M/mcL (4.19-5.50)
[2017-03-17 04:57] LABS: Chol/HDL Ratio 8.9 (0-4.9)
[2017-03-17 05:01] LABS: BUN/Creatinine Ratio 20 (6-26); Blood Urea Nitrogen 24 mg/dL (8-26); Carbon Dioxide 23 mEq/L (19-29); Chloride 98 mEq/L (98-109); Glucose 122 mg/dL (70-99); Osmolality,Calculated 269 (280-300); Sodium 127 mEq/L (136-145); eGFR For African Americans > 60 (> 60); eGFR For Non-African Americans > 60 (> 60)
[2017-03-17 05:29] LABS: Eosinophils # 0.5 K/mcL (0.0-0.6); Lymphocytes # 0.5 K/mcL (0.6-4.6); Neutrophils # 22.8 K/mcL (1.6-8.9); Platelet Estimate Normal (Normal)
[2017-03-17 05:30] LABS: Toxic Granulation Present (Not Present)
[2017-03-17] MEDS: *HR* Heparin 5,000 UNIT/ML VIAL SQ SCH (06:01)
[2017-03-17] MEDS: 0.9 % Sodium Chloride 1,000 ML IVC SCH (06:56)
[2017-03-17] MEDS: Doxycycline 100 MG in 0.9 % Sodium Chloride Mini Bag 100 ML IVPB SCH (06:57)
[2017-03-17 08:00] LABS: Adenovirus Not Detected (Not Detect); Bordetella Pertussis Not Detected (Not Detect); Chlamydophila pneumoniae Not Detected (Not Detect); Coronavirus 229E Not Detected (Not Detect); Coronavirus HKU1 Not Detected (Not Detect); Coronavirus NL63 Not Detected (Not Detect); Coronavirus OC43 Not Detected (Not Detect); Human Metapneumovirus Not Detected (Not Detect); Human Rhinovirus/Enterovirus Not Detected (Not Detect); Influenza A Subtype 2009 H1 Not Detected (Not Detect); Influenza A Untypeable Not Detected (Not Detect); Influenza B Not Detected (Not Detect); Mycoplasma pneumoniae Not Detected (Not Detect); Parainfluenza Virus 1 Not Detected (Not Detect); Parainfluenza Virus 2 Not Detected (Not Detect); Parainfluenza Virus 3 Not Detected (Not Detect); Parainfluenza Virus 4 Not Detected (Not Detect); Respiratory Syncytial Virus Not Detected (Not Detect)
[2017-03-17] MEDS ORDERED: Mag Hydrox/Al Hydrox/Simeth 30 ML UDC PO PRN (08:25)
[2017-03-17] MEDS ORDERED: Aspirin Enteric Coated 81 MG Tablet PO SCH (09:00)
[2017-03-17] MEDS ORDERED: *HR* OxyCODONE/APAP 10/325 TABLET PO PRN (09:44)
[2017-03-17] MEDS ORDERED: traMADol 50 MG TABLET PO PRN (09:44)
--- NOTE | 2017-03-17 10:10 | Cardiology Progress Note ---
Date of Encounter: 03/17/17 Time of Encounter: 09:00 Assessment and Plan (1) Sepsis Current Visit: Yes Status: Acute Per cardiology: -Patient with sepsis from unknown source. -ON ATB. -WBC continuing to climb. -Patient states he is being transferred to [place]. -Management per primary service. Qualifiers: Sepsis type: sepsis due to unspecified organism Qualified Code(s): A41.9 - Sepsis, unspecified organism (2) Fever of unknown origin Current Visit: Yes Status: Acute Per cardiology: -Fever at home reported to be 104, with reported halllucinations. -Temperature at [facility] 100. -On ATB, cultures drawn. -Management per primary service. (3) Elevated troponin Current Visit: Yes Status: Acute Per cardiology: -Troponin 0.3, 0.55, 1.06, 1.89. 2.57. -Troponins elevated in the setting of sepsis, fever, and leukocytosis. -Echocardiogram with LVEF 55%, moderate concentric left ventricular hypertrophy , no significant valvular dysfunction, all ruiz with normal motion. -Patient had recent excercise stress test 10/2016 [facility] stress ECG negative for ischemia, excercise capacity was excellent, normal hemodynamic response to excercise, no arrhythmias noted. -Patient denies chest pain, denies excertional symptoms, denies shortness of breath. Patient admits to fatigue that started with generalized illness. -ECG with ST, HR 111, ST depression noted in inferior leads, however baseline ECG also with ST depression in inferior leads. ST Depression on this admissions ECG may be slightly more pronounced. ECG reviewed with Dr.John Morel. -Repeat ECG ordered. -Do not suspect NSTEMI, suspect demand ischemia related to sepsis, fever, and leukocytosis. NO cardiac rehab warranted at this time. -Per discussion with Dr.John Morel, given patient's sepsis, leukocytosis, and febrile illness, he is not a candidate for invasive ischemic work up. Patient states understanding and agrees with plan. -Further work up to be completed at [place]. (4) Lactic acidosis Current Visit: Yes Status: Acute Per cardiology: -Elevated lactic acidosis. -Management per primary service. (5) Sinus tachycardia Current Visit: Yes Status: Acute Per cardiology: -Sinus tachycardia noted. -Average HR 118. -Unable to give beta elly due to hypotension. -Suspect may be related to sepsis, febrile illness. -Will continue to monitor. Discussion w patient/family: The assessment and plan as outlined above was discussed with the patient who expressed understanding and agreement. All questions were answered. Thank you for involving us in the care of your patient. Please call with any questions. Discussed and reviewed with Dr.John Morel. Subjective Principal diagnosis: febrile illness Interval history: Patient states he had not been feeling well for the past couple of days. Patient states he presented to urgent care and was diagnosed with bronchitis and strep throat. Patient states he was started on ATB at urgent care. After urgent care visit, patient became increasingly sick with Temperature of 104. Patient states that his said he was hallucinating. Patient was taken to [facility] and was admitted. Patient diagnosed with severe sepsis, unknown origin. Cardiology was consulted for elevated troponin. Patient denies chest pain. However, he states his throat hurts when he takes a deep breath. Patient denies shortness of breath. Patient admits to fatigue that started with this generalized illness. Patient states he is still not feeling well today. Patient states that the hospitalist team is recommending transfer to [place]. Patient states he is agreeable to go to [place]. Objective Vital Signs, Last 4 Hours Temp Pulse Resp BP Pulse Ox 03/17/17 07:18 98.2 F 103 16 92/64 94 General: Conversant, No Apparent Distress HEENT: Atraumatic, Normocephaly, Mucus Membranes Moist Neck: No JVD, Normal carotid pulses Cardiac: Normal S1 and S2, No Murmur, Other (Tachycardic) Lungs: Normal Breath Sounds, No Wheeze, Rales, Rhonchi Neuro: Alert and responsive, No focal deficits noted Abdomen: Soft, Non-Tender Skin: No rashes noted on visualized skin Musculoskeletal: No Chest Wall Tenderness Extremities: No Clubbing, No Edema, Normal Pulses Results 03/17/17 04:26 03/17/17 04:26 Lab Results Impressions Head CT 03/16/17 11:00 IMPRESSION: No acute intracranial abnormality. No evidence of ectopic cerebellar tonsils. D/ / Davidson Salazar MD / Davidson Salazar MD Interpreting Provider: Davidson Salazar MD Lumbar Spine CT 03/16/17 11:00 IMPRESSION: 1. Normal lumbar spine alignment with multilevel degenerative changes most severe at the L5/S1 level resulting in severe bilateral neural foraminal stenosis and contributing to left S1 nerve root impingement. 2. There is no evidence of lumbar discitis/osteomyelitis or vertebral canal abscess. 3. Nonspecific symmetric superficial fascial edema of the bilateral psoas, quadratus lumborum, and iliacus musculature. This could represent bland edema versus possible infectious versus inflammatory myositis. No evidence of an associated abscess. D/ : / 03/16/2017 12:27:32 Brandon Reid MD / Marleny Matos Interpreting Provider: Brandon Reid MD Lumbar Puncture Fluoroscopy 03/16/17 13:19 IMPRESSION: Successful fluoroscopic-guided lumbar puncture. D/ /16/2017 18:44:42 Carl Lopez MD / krish Interpreting Provider: Carl Lopez MD Active Medications Al Hydrox/Mg Hydrox/Simethicone (Maalox) 30 ml PO Q4H PRN; Protocol PRN Reason: Indigestion Stop: 09/16/17 08:26 Last Admin: 03/17/17 09:20 Dose: 30 ml Aspirin (Aspirin Ec) 81 mg PO DAILY EFE Stop: 09/16/17 09:01 Last Admin: 03/17/17 09:19 Dose: 81 mg Baclofen (Lioresal) 10 mg PO TID PRN PRN Reason: Spasms Stop: 09/14/17 23:02 Last Admin: 03/15/17 23:12 Dose: 10 mg Calcium Carbonate (Tums) 1,000 mg PO Q4HR PRN; Protocol PRN Reason: Heartburn Stop: 09/15/17 21:17 Last Admin: 03/17/17 04:20 Dose: 1,000 mg Docusate Sodium (Colace) 100 mg PO BID PRN; Protocol PRN Reason: Constipation Stop: 09/16/17 08:27 Last Admin: 03/17/17 09:19 Dose: 100 mg Heparin Sodium (Porcine) (Heparin) 5,000 unit SQ Q8HCO [facility] Stop: 09/15/17 06:01 Last Admin: 03/17/17 06:01 Dose: 5,000 unit Cefepime HCl 2,000 mg/ (Dextrose) 100 mls @ 200 mls/hr IVPB Q8H [facility] Stop: 09/14/17 21:01 Last Admin: 03/17/17 04:23 Dose: 200 mls/hr Sodium Chloride (0.9 % Sodium Chloride) 1,000 mls @ 150 mls/hr IVC .Q6H40M [facility] Stop: 09/14/17 21:31 Last Admin: 03/17/17 06:56 Dose: 150 mls/hr Doxycycline Hyclate 100 mg/ (Sodium Chloride) 100 mls @ 100 mls/hr IVPB Q12HR [facility] Stop: 09/15/17 10:30 Last Admin: 03/17/17 06:57 Dose: 100 mls/hr Vancomycin HCl 1,500 mg/ (Dextrose) 250 mls @ 167 mls/hr IVPB Q12H [facility] PRN Reason: Protocol Stop: 09/15/17 16:01 Last Admin: 03/17/17 05:22 Dose: 167 mls/hr Ibuprofen (Motrin) 400 mg PO Q6HR PRN PRN Reason: Mild Pain (1-3)/Fever Stop: 09/14/17 21:26 Last Admin: 03/17/17 04:23 Dose: 400 mg Morphine Sulfate (Morphine Sulfate) 2 mg IVP Q4HR PRN PRN Reason: Severe Pain (7-10) Stop: 09/14/17 21:26 Naloxone HCl (Narcan) 0.4 mg IVP Q2MIN PRN PRN Reason: Opioid Reversal Stop: 09/14/17 21:26 Ondansetron HCl (Zofran) 4 mg IVP Q6HR PRN; Protocol PRN Reason: Nausea Stop: 09/15/17 18:01 Last Admin: 03/16/17 15:08 Dose: 4 mg Oxycodone/Acetaminophen (Percocet 10/325) 1 each PO Q4HR PRN PRN Reason: Moderate Pain (4-6) Stop: 09/15/17 16:11 Simvastatin (Zocor) 40 mg PO HS [facility] Stop: 09/15/17 21:01 Last Admin: 03/16/17 20:52 Dose: 40 mg Tramadol HCl (Ultram) 50 mg PO Q4HR PRN PRN Reason: Moderate Pain (4-6) Stop: 09/15/17 07:59 Laboratory Tests 03/15/17 03/15/17 03/15/17 18:20 18:20 18:20 WBC 18.5 H Creatinine Lactic Acid Troponin I 0.30 H* C-Reactive Protein 225 H 03/15/17 03/15/17 03/16/17 19:38 21:10 01:06 WBC Creatinine Lactic Acid 2.9 H Troponin I 0.55 H* 1.06 H* C-Reactive Protein 03/16/17 03/16/17 03/17/17 05:57 12:17 04:26 WBC 23.7 H Creatinine Lactic Acid Troponin I 1.89 H* 2.57 H* C-Reactive Protein 03/17/17 03/17/17 04:26 04:26 WBC Creatinine 1.20 Lactic Acid 3.3 H Troponin I C-Reactive Protein - Imaging and Cardiology Chest Xray: report reviewed Echo: report reviewed Other Results: CT head, abdomen/pelvis, lumbar spine reviewed. LP reviewed. - EKG Interpretation EKG results cardiology: other (Telemetry reviewed with average HR 118, sinus tachycardia. No significant events noted.) Consult Discharge Plan - Plan Referrals: Cameron Chapin MD [Primary Care Provider] -
[2017-03-17 10:54] VITALS: BP 110/79
--- NOTE | 2017-03-17 13:20 | Discharge Summary ---
Date of Encounter: 03/17/17 Time of Encounter: 13:10 - Discharge Diagnosis (1) Sepsis Priority: Primary Status: Acute Qualifiers: Sepsis type: sepsis due to unspecified organism Qualified Code(s): A41.9 - Sepsis, unspecified organism (2) Fever of unknown origin Priority: Primary Status: Acute (3) Elevated troponin Priority: Primary Status: Acute - Discharge Medications Home Medications: Acetaminophen [Tylenol] 650 mg PO Q6HR PRN 03/15/17 [History] Aspirin Enteric Coated [Aspirin EC] 81 mg PO DAILY 03/15/17 [History] Allergies/Adverse Reactions: Allergies Anthrax Vaccine Allergy (Verified 09/27/15 08:46) Swelling of Lip/Tongue/Throat Penicillins [PCN] Allergy (Verified 09/27/15 08:46) Hives Procedures/tests Complete & Pending: Procedures Performed prior 72 hours Category Date Time Status CT abd pelvis wo no iv no oral [CT] Stat Cat Scan 03/16/17 03:[address] head/brain wo con [CT] Routine Cat Scan 03/16/17 11:[address] lumbar spine w con [CT] Routine Cat Scan 03/16/17 11:00 Completed ECG 12 lead ECG [ECG] Routine Y 03/15/17 19:14 Completed ECG 12 lead ECG [ECG] Routine Y 03/17/17 08:46 Ordered EV echocardiogram Routine Y 03/16/17 02:03 Completed Date of admission: 03/15/17 21:25 Primary care physician: Cameron Chapin MD Discharging clinician: Kaylan Dominguez Anticipated date of discharge: 03/17/17 - Patient Status Disposition: Transfer Critical Access Hosp Condition: Fair Functional capacity at discharge: independent ambulation Overall status at discharge: patient is not back to baseline - Discharge Instructions Follow Up With: Cameron Chapin MD [Primary Care Provider] - - Diet and Activity Activity: as per physical therapy Diet: regular diet Interval History: Mr. Bennett is a 51 year old male with no significant past medical history presented to the emergency department with complaints of fever and body aches. Patient reports his symptoms started on Wednesday and progressively worsened with a maximum temperature of 104. His body aches with hip pain and low back pain, he has headaches, he has burning in his throat and chest like heartburn, he has sweats and chills. He reports some nausea on and off and a poor appetite , one episode of vomiting Denies any pain or burning with urination, denies any abdominal pain or diarrhea. Evaluation in the emergency department was significant for elevated white blood cell count of 18.5, he was tachycardic, hypotensive, consistent with sepsis. ESR was elevated to 33, CRP was elevated to 225. Troponin was also elevated to 0.3, cardiology was consulted and case was discussed and they felt this was secondary to his infection and recommended serial troponins. Lactate was elevated to 2.9 . Chest x-ray showed no acute cardiopulmonary disease. Patient was admitted for sepsis with unknown etiology. He was started on empirical IV antibiotics. [place] was negative. He was borderline hypotensive and tachycardic. Workup for the source included chest x-ray, CT abdomen pelvis, UA, CXR, CT head , and lumbar puncture all of which was negative for any source of infection at this time. As he was complaining of back pain, CT lumbar spine with contrast was also done which did not show any signs of infection of the vertebrae or any abscess. He was treated with IV Vanco and cefepime and doxycycline was added for possible tickborne infections. He denies any history of travel, reports HIV negative and denies IV drug abuse. On the second day of admission, patient still has persistent temperature of 100 and is tachycardic, there is worsening of leukocytosis, increased from 16-23. Lactic acid increased to 3.3 from 2.7. Cardiology is following the patient for troponin elevation which is most likely secondary to demand ischemia from sepsis. Set of viral respiratory panel was sent, this has also been negative including the first set of blood cx. Given sepsis with worsening leucocytosis and lactate and persistent fever with tachycardia, I discussed with the patient that despite mulitple lab work, we are unable to point out the etiology and we dont have Infectious disease support at this time. hence, the plan for transfer to tertiary care center for further management. patient in agreement and wishes to be transferred to [facility]. Hospital course: Mr. Bennett is a 51 year old male Time spent discussing smoking cessation with patient: more than 10 minutes - Time Spent with Patient Total time spent providing and/or coordinating discharge services: Greater than 30 minutes - Constitutional Vitals: Temp Pulse Resp BP Pulse Ox 97.6 F 100 18 110/79 96 03/17/17 10:51 03/17/17 10:51 03/17/17 10:51 03/17/17 10:51 03/17/17 10:51 General appearance: Present: mild distress, A&O X 3, pleasant Exam: neck- supple chest -b/l clear, no added sounds CVS-s1 and s2, no m/r/g abdomen- soft, non tender, bs are present, tenderness at the lumbo sacral region , no swelling or redness. ext- no edema or rash. neuro- no focal neuro defecits.
[2017-03-17] MEDS ORDERED: Aminoglycoside Consult 1 EACH MC ONE (14:22)
== END 2017-03-17 14:23 | disposition critical access hospital (66) | DRG 872 ==
LOC: 2ANU 17:30 → EMEROO 17:30 → 2ANU 22:25
PROVIDERS: ADMIT Internal Medicine; ATTEND Internal Medicine

== ENCOUNTER 2018-06-04 18:38 | Observation (INO) ==
[2018-06-04] MEDS ORDERED: Aspirin 81 MG TAB.CHEW PO ONE (18:54)
[2018-06-04] MEDS ORDERED: Ondansetron 4 MG/2 ML VIAL IVP ONE (18:54)
--- NOTE | 2018-06-04 19:21 | Emergency Department Note ---
Disposition Clinical Impression: ACS (acute coronary syndrome) Disposition: Admitted As Inpatient General Adult HPI - General Chief complaint: ED Chest Pain Stated complaint: Chest Pain Time Seen by Provider: 06/04/18 18:49 - History of Present Illness Pain Scale: 4 - Related Data Home Medications Medication Instructions Recorded Confirmed Acetaminophen [Tylenol] 650 mg PO Q6HR PRN 03/15/17 03/15/17 Aspirin Enteric Coated [Aspirin EC] 81 mg PO DAILY 03/15/17 03/15/17 Allergies Allergy/AdvReac Type Severity Reaction Status Date / Time Anthrax Vaccine Allergy Swelling Verified 06/04/18 19:07 of Lip/Tongue/Throat Penicillins [PCN] Allergy Hives Verified 06/04/18 19:07 Past Medical History - Past Medical History Medical history: Reports: no medical history Surgical history: Reports: appendectomy Psychiatric history: Reports: anxiety - Social History Smoking Status: Former smoker Smokeless Tobacco Status: No Alcohol use: Reports: none Drug use: Reports: none Course - Reevaluation(s) Reevaluation #1: ATTESTATION NOTE I examined this patient and my medical decision-making was reviewed with the Resident Physician, Babar Herring. I agree with the documented findings, disposition and treatment plan as described except to the extent set forth below. I have personally performed a face to face evaluation on this patient. I have reviewed and agree with the care plan. Briefly: 53-year-old male heart score of 4. Patient is actively having chest pain no known pre-existing atherosclerotic cardiovascular disease. EKG shows nonspecific changes patient is afebrile with stable vital signs patient will get aspirin we will hold off on nitroglycerin since the patient stated that he did take Viagra 2 PM yesterday. Patient will undergo troponin chest x-ray screening labs. Admission anticipated, disposition pending Time: 19:18 Vital Signs Temperature 98.6 F 06/04/18 18:46 Pulse Rate 70 06/04/18 18:46 Respiratory Rate 16 06/04/18 18:46 Blood Pressure 132/91 06/04/18 18:46 O2 Sat by Pulse Oximetry 98 06/04/18 18:46 Temperature 98.6 F 06/04/18 18:46 Pulse Rate 72 06/04/18 18:59 Respiratory Rate 20 06/04/18 18:59 Blood Pressure 136/91 06/04/18 18:59 O2 Sat by Pulse Oximetry 97 06/04/18 19:15 Oxygen Delivery Oxygen Delivery Room Air
[2018-06-04 19:29] LABS: Basophils % 0.4 %; Eosinophils # 0.1 K/mcL (0.0-0.6); Eosinophils % 1.3 %; Hematocrit 40.8 % (37.5-50.1); Hemoglobin 14.2 g/dL (12.9-16.9); Immature Granulocytes % 0.4 % (0-4); Mean Corpuscular HGB Conc 34.8 g/dL (31.6-35.5); Mean Corpuscular Hemoglobin 32.6 pg (28.0-33.3); Mean Corpuscular Volume 93.8 fL (83.0-100.0); Mean Platelet Volume 8.8 fL (9.4-12.4); Monocytes # 0.5 K/mcL (0.0-1.3); Monocytes % 7.4 %; Neutrophils # 4.2 K/mcL (1.6-8.9); Platelet Count 235 K/mcL (140-400); Red Blood Count 4.35 M/mcL (4.19-5.50); Red Cell Distribution Width 11.9 % (11.5-14.5); Segmented Neutrophils % 61.5 %
--- NOTE | 2018-06-04 19:38 | Emergency Department Note ---
Disposition Clinical Impression: ACS (acute coronary syndrome) Disposition: Admitted As Inpatient Condition: Fair Time of Disposition: 20:19 General Adult HPI - General Chief complaint: ED Chest Pain Stated complaint: Chest Pain Time Seen by Provider: 06/04/18 18:49 Source: patient Mode of arrival: ambulatory Limitations: no limitations Nursing Notes Reviewed: Yes Vital Signs Reviewed: Yes - History of Present Illness HPI Narrative: Patient is a 53-year-old male with a past medical history of high cholesterol and one pack per day smoking presents to the emergency department for the presentation of chest pain that has been going on for 3 days. Patient states that his pain has been gradual in onset and describes as a left-sided chest pressure that radiates into his left jaw and left arm. Describes it as a 3/10. Associated with nausea and dyspnea. Denies any history of CAD, but he does have family history of CAD, hypertension and diabetes. No recent cardiac workup. States that he took Viagra yesterday. Patient states he is also going through alot of stressors such as divorce, in which he is losing his house. Pain Scale: 4 - Related Data Home Medications Medication Instructions Recorded Confirmed Acetaminophen [Tylenol] 650 mg PO Q6HR PRN 03/15/17 03/15/17 Aspirin Enteric Coated [Aspirin EC] 81 mg PO DAILY 03/15/17 03/15/17 Allergies Allergy/AdvReac Type Severity Reaction Status Date / Time Anthrax Vaccine Allergy Swelling Verified 06/04/18 19:07 of Lip/Tongue/Throat Penicillins [PCN] Allergy Hives Verified 06/04/18 19:07 All systems ED: reviewed and negative except as stated. Review of Systems: As Per HPI Constitutional: Reports: weakness (Generalized weakness). Denies: fever, chills Cardiovascular: Reports: chest pain. Denies: palpitations, dyspnea on exertion , orthopnea, edema, syncope Respiratory: Reports: dyspnea. Denies: cough, wheezes, hemoptysis, sputum production Gastrointestinal: Reports: nausea. Denies: abdominal pain, vomiting Musculoskeletal: Denies: back pain, neck pain Integumentary: Denies: rash Neurological: Denies: headache, weakness Past Medical History - Past Medical History Attestation: Yes The following information was validated with the patient. Medical history: Reports: no medical history Surgical history: Reports: appendectomy Psychiatric history: Reports: anxiety - Social History Smoking Status: Former smoker Smokeless Tobacco Status: No Alcohol use: Reports: none Drug use: Reports: none Physical Exam CONSTITUTIONAL: Well-appearing; well-nourished; A&O X 3, in no apparent distress HEAD: Normocephalic; atraumatic EYES: PERRL, no scleral icterus NOSE: The nose is normal in appearance without rhinorrhea NECK: No JVD or distended neck veins RESP: Normal chest excursion with respiration; breath sounds clear and equal bilaterally; no wheezes, rhonchi, or rales CARD: Regular rhythm, without murmurs, rub or gallop ABD: Non-distended; non-tender, soft, without rigidity, rebound or guarding,no pulsatile mass CHEST: No pain with palpation SKIN: Normal for age and race; warm and dry without diaphoresis ; no apparent lesions EXTREMITIES: Pulses are 2 plus and equal times 4 extremities, no peripheral edema or calf muscle pain - General Limitations: no limitations General appearance: alert Course Course Narrative: Plan at this time is to evaluate the patient for cardiac chest pain. Receive a full dose of aspirin. We will hold on the nitroglycerin at this time given his recent Viagra use. His initial EKG shows shows moderate intraventricular conduction delay, no ischemic changes and unchanged from old. At this time calculated a heart score of 4 which puts him at moderate risk. This is attributed to the patient's moderately suspicious history, nonspecific EKG findings, age as well as his risk factors. Undergo workup with EKG chest x-ray basic labs and troponin. Zofran for nausea and tylenol for pain. Will reevaluate. 20:18 - discussed with the patient at this time there are no abnormalities on his CBC, metabolic panel, and his troponin is negative, chest x-ray is normal and EKG is not ischemic. Patient states that his pain improved with the Tylenol and Zofran. His pain is currently a 0/10 and his nausea is completely resolved. I discussed with the patient that given his risk factors is best that he be admitted to the hospital for ACS rule out. Patient agrees with this plan. Discussed the patient's case with hospitalist, Dr. Castle, and he agrees to accept the patient. Vital Signs Temperature 98.6 F 06/04/18 18:46 Pulse Rate 70 06/04/18 18:46 Respiratory Rate 16 06/04/18 18:46 Blood Pressure 132/91 06/04/18 18:46 O2 Sat by Pulse Oximetry 98 06/04/18 18:46 Temperature 98.6 F 06/04/18 19:16 Pulse Rate 68 06/04/18 20:40 Respiratory Rate 18 06/04/18 20:40 Blood Pressure 134/85 06/04/18 20:40 O2 Sat by Pulse Oximetry 98 06/04/18 20:40 Oxygen Delivery Oxygen Delivery Room Air Medical Decision Making - Medical Records Medical records reviewed: Yes I reviewed the patient's medical records. - Lab Data Lab results reviewed: Yes I reviewed the patient's lab results. Result diagrams: 06/04/18 19:13 06/04/18 19:13 Lab Results 06/04/18 06/04/18 Range/Units 19:13 19:13 WBC 6.8 (4.3-11.1) K/mcL RBC 4.35 (4.19-5.50) M/mcL Hgb 14.2 (12.9-16.9) g/dL Hct 40.8 (37.5-50.1) % MCV 93.8 (83.0-100.0) fL MCH 32.6 (28.0-33.3) pg MCHC 34.8 (31.6-35.5) g/dL RDW 11.9 (11.5-14.5) % Plt Count 235 (140-400) K/mcL MPV 8.8 L (9.4-12.4) fL Immature Gran % 0.4 (0-4) % Seg Neutrophils % 61.5 % Lymphocytes % 29.0 % Monocytes % 7.4 % Eosinophils % 1.3 % Basophils % 0.4 % Neutrophils # 4.2 (1.6-8.9) K/mcL Lymphocytes # 2.0 (0.6-4.6) K/mcL Monocytes # 0.5 (0.0-1.3) K/mcL Eosinophils # 0.1 (0.0-0.6) K/mcL Basophils # 0.0 (0.0-0.2) K/mcL Sodium 134 L (136-145) mEq/L Potassium 3.4 L (3.5-5.1) mEq/L Chloride 108 H (98-107) mEq/L Carbon Dioxide 26 (23-29) mEq/L BUN 17 (6-20) mg/dL Creatinine 0.93 (0.70-1.30) mg/dL Est GFR ( Amer) > 60 (> 60) Est GFR (Non-Af Amer) > 60 (> 60) BUN/Creatinine Ratio 18 (6-26) Glucose 136 H (70-105) mg/dL Calculated Osmolality 282 (280-300) Calcium 9.5 (8.6-10.3) mg/dL Troponin I < 0.03 (< 0.04) ng/mL - Radiology Data Radiology results reviewed: Yes I reviewed the patient's radiology results. Chest X-Ray 06/04/18 18:54 IMPRESSION: No acute cardiopulmonary abnormality. D/ / Jarrod Rinaldi / Jarrod Rinaldi Interpreting Provider: Jarrod Rinladi - EKG Data EKG #1 EKG attestation: Yes I reviewed and interpreted this EKG. EKG results narrative: EKG done at 18:59 shows sinus rhythm at a rate of 70 bpm. Normal axis. Intervals within normal limits. No signs of ST elevation, ST depression or Q waves present. There is moderate intraventricular conduction delay QRS duration of 118. No signs of ischemia. Unchanged from EKG done on 03/15/2017.
[2018-06-04 19:49] LABS: BUN/Creatinine Ratio 18 (6-26); Blood Urea Nitrogen 17 mg/dL (6-20); Calcium 9.5 mg/dL (8.6-10.3); Carbon Dioxide 26 mEq/L (23-29); Chloride 108 mEq/L (98-107); Glucose 136 mg/dL (70-105); Osmolality,Calculated 282 (280-300); Potassium 3.4 mEq/L (3.5-5.1); Sodium 134 mEq/L (136-145); eGFR For Non-African Americans > 60 (> 60)
[2018-06-04 19:51] LABS: Troponin I < 0.03 ng/mL (< 0.04)
[2018-06-04] MEDS ORDERED: Naloxone 0.4 MG/ML INJ IVP PRN (22:34)
[2018-06-04] MEDS ORDERED: Ondansetron ODT 4 MG TAB.RAPDIS SL PRN (22:36)
--- NOTE | 2018-06-04 22:42 | Internal Med History&Physical ---
Date of Encounter: 06/05/18 Time of Encounter: 09:30 Internal Medicine - H&P: HPI Chief complaint: Chest pain Admitted From: Home Plans for Post Hospital Care: Home History of present illness: Mr. Bennett is a 53 year old male Patient presented to the emergency room for worsening chest pain for the last 3 days. 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 The chest pain feels like tightness and was radiating from his left side to his jaw and left arm. He rates the pain 3 out of 10, with associated nausea but no shortness of breath. He never had pain like this before. Patient also recently started smoking cigarettes, and has done so for the last 5 weeks. He smokes a pack a day. He came to the emergency room as the pain is increased and not resolving. He normally tries to stay healthy, works out regularly and stays in shape. In the emergency room EKG did not show ischemic changes, and troponins initially less than 0.03. Patient was given aspirin, but nitroglycerin was contraindicated as patient had recently taken Viagra. Patient was admitted to the hospital for further monitoring. Past Med Surg Social Fam HX - Past Medical History Medical history: no medical history Psychiatric history: anxiety - Past Surgical History Surgical History: appendectomy Additional surgical history: right hand surgery. - Social History Smoking Status: Current every day smoker Packs per day: 1 Smokeless Tobacco Status: No Alcohol use: none Drug use: none - Family History Mother Living Status: Hx Family Cardiac Disorders: Yes (CHF) Hx Family Respiratory Disorders: No Hx Family Cancer: No Hx Family GI Disorders: No Hx Family Genitourinary Disorders: No Hx Family Endocrine Disorder: No Hx Family Musculoskeletal Disorders: No Hx Family Neuromuscular Disorders: No Hx Family Neurologic Disorders: No Hx Family HEENT Disorders: No Hx Family Autoimmune Disorders: No Hx Family Reproductive Disorders: No Hx Family Psychosocial Disorders: No Hx Family Medical Disorders: Yes (DM) Father Living Status: Still Living Hx Family Cardiac Disorders: No Hx Family Respiratory Disorders: No Hx Family Cancer: No Hx Family GI Disorders: No Hx Family Genitourinary Disorders: No Hx Family Endocrine Disorder: No Hx Family Musculoskeletal Disorders: No Hx Family Neurologic Disorders: No Hx Family HEENT Disorders: No Hx Family Autoimmune Disorders: No Hx Family Reproductive Disorders: No Hx Family Psychosocial Disorders: No Hx Family Medical Disorders: Yes (DM) Internal Medicine - H&P: Meds Acetaminophen [Tylenol] 650 mg PO Q6HR PRN 03/15/17 [History] Aspirin Enteric Coated [Aspirin EC] 81 mg PO DAILY 03/15/17 [History] 3 Allergy/AdvReac Type Severity Reaction Status Date / Time Anthrax Vaccine Allergy Swelling Verified 06/04/18 19:07 of Lip/Tongue/Throat Penicillins [PCN] Allergy Hives Verified 06/04/18 19:07 All Systems PM: A 10-system review of systems was performed and is negative for pertinent findings except as documented above in the HPI. - Constitutional Vitals: Temp Pulse Resp BP Pulse Ox 98.1 F 68 18 134/85 98 06/04/18 20:38 06/04/18 20:40 06/04/18 20:40 06/04/18 20:40 06/04/18 20:40 General appearance: Present: cooperative, A&O X 3, pleasant, answers questions appropriately - Head Head exam: Present: normal inspection - Eye Eye exam: Present: EOMI, normal appearance - Respiratory Respiratory exam: Present: CTAB. Absent: chest wall tenderness, respiratory distress, wheezes - Cardiovascular Cardiovascular exam: Present: RRR. Absent: diastolic murmur, systolic murmur - GI/Abdominal GI/Abdominal exam: Present: normal bowel sounds, soft. Absent: tenderness - Extremities Exam Extremities exam: Present: warm, radial pulses palpable and symmetrical. Absent : calf tenderness, pedal edema, tenderness - Neurological Exam Neurological exam: Present: no focal deficits, strengths equal and symetr throughout. Absent: motor sensory deficit, facial droop, speech deficit - Skin Skin exam: Present: dry, normal color, warm Internal Med - H&P Results - Labs CBC & Chem 7: 06/05/18 00:30 06/05/18 00:30 - Assessment and plan (1) Chest pain Current Visit: Yes Status: Acute Assessment and plan: Patient's chest pain has resolved, though during the night he received a phone call from his girlfriend who apparently broke up with him over the phone. He says he had a little bit of chest pain after this phone call. Continue to trend troponins personnel monitor Sitter stress test or echocardiogram in the morning. Qualifiers: Qualified Code(s): R07.9 - Chest pain, unspecified (2) History of recent stressful life event Current Visit: Yes Status: Acute Assessment and plan: Patient recently going through divorce, also losing his house. He has been living in a truck for the last several days. His girlfriend also broke up with him today. 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 (3) Nicotine dependence with current use Current Visit: Yes Status: Acute Assessment and plan: Patient recently started smoking, currently not requesting nicotine patch (4) DVT prophylaxis Current Visit: No Status: Acute Assessment and plan: Heparin subcutaneously - Time Spent With Patient Total time spent is greater than 50% in coordination of care (as documented) at patient's floor/unit and/or counseling patient: Greater than 35 minutes
[2018-06-05 00:52] LABS: Hematocrit 41.4 % (37.5-50.1); Hemoglobin 14.3 g/dL (12.9-16.9); Mean Corpuscular HGB Conc 34.5 g/dL (31.6-35.5); Mean Corpuscular Hemoglobin 32.6 pg (28.0-33.3); Mean Corpuscular Volume 94.3 fL (83.0-100.0); Mean Platelet Volume 8.7 fL (9.4-12.4); Platelet Count 221 K/mcL (140-400); Red Blood Count 4.39 M/mcL (4.19-5.50)
[2018-06-05 01:18] LABS: BUN/Creatinine Ratio 18 (6-26); Blood Urea Nitrogen 16 mg/dL (6-20); Calcium 9.5 mg/dL (8.6-10.3); Carbon Dioxide 28 mEq/L (23-29); Chloride 106 mEq/L (98-107); Glucose 106 mg/dL (70-105); Osmolality,Calculated 290 (280-300); Potassium 3.5 mEq/L (3.5-5.1); Sodium 139 mEq/L (136-145); eGFR For Non-African Americans > 60 (> 60)
[2018-06-05] MEDS ORDERED: *HR* Heparin 5,000 UNIT/ML VIAL SQ SCH (06:00)
--- NOTE | 2018-06-05 09:42 | Event Note ---
Date of Encounter: 06/05/18 Time of Encounter: 09:40 Patient was seen and examined. I agree with the progress note as written by the resident physician. 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 He has no chest pain right now. Troponins are not elevated 3. EKG with no acute ST or T-wave changes. He is bradycardic. GEN: NAD CVS: Bradycardia. S1, S2, No m/r/g RESP: CTAB ABD: Soft, NT, ND, +BS EXT: No edema. 2+ DP. No rashes NEURO: Nonfocal Patient's heart rate jumps 20-30 heartbeats when he ambulates The chest pain free Troponins are negative 3 Stress him in the morning Start baby aspirin Lipid panel in the morning Nicotine patch. Patient recently started smoking but only smokes a couple cigarettes a day.
--- NOTE | 2018-06-05 10:14 | Internal Med Progress Note ---
Date of Encounter: 06/05/18 Time of Encounter: 10:14 - Assessment and plan (1) Chest pain Current Visit: Yes Status: Acute Assessment and plan: Atypical chest pain Heart score 3 Troponin within normal limits Given aspirin Nitroglycerin not given as patient is on Viagra Patient undergoing stressful life events due to undergoing divorce with loss of his house and just broke up with his girlfriend Plan on exercise ECG tomorrow Continue aspirin and statin Lipid panel ordered Qualifiers: Chest pain type: unspecified Qualified Code(s): R07.9 - Chest pain, unspecified (2) Tobacco use Current Visit: Yes Status: Acute Assessment and plan: Patient recently started smoking 5 weeks ago He is quitting after this event of chest Pain (3) DVT prophylaxis Current Visit: Yes Status: Acute Assessment and plan: Ambulate 3 times a day (4) History of recent stressful life event Current Visit: Yes Status: Acute Assessment and plan: As stated above Hydroxyzine 10 mg by mouth 3 times a day when necessary Patient should follow-up with his primary care physician for further evaluation of his anxiety. - Time Spent With Patient Total time spent is greater than 50% in coordination of care (as documented) at patient's floor/unit and/or counseling patient: - Subjective Interval history: Admitted for chest pain rule out. Reports that his chest pain is brought on by stress. Reports he has cardiovascular disease history on his mother's side. He recently started smoking 5 weeks ago smokes intermittently but has decided to quit. Currently he denies chest pain, shortness of breath, abdominal pain. He is able to ambulate independently. He is tolerating his diet. - Constitutional Vitals: Temp Pulse Resp BP Pulse Ox 98.1 F 65 16 122/79 99 06/05/18 06:21 06/05/18 06:21 06/05/18 06:21 06/05/18 06:21 06/05/18 06:21 General appearance: Present: cooperative, A&O X 3, pleasant, answers questions appropriately - Other Additional findings: General: without distress Heart: Regular rate and rhythm with no murmur Lungs: Clear to auscultation bilaterally Abdomen: Soft nontender, nondistended positive bowel sounds Skin: warm and dry, absent rash Extremities: Absent pedal edema, Neuro: Alert oriented 3 Vascular: Pedal and radial pulses 2 out of 4 Internal Medicine: Result - Labs CBC & Chem 7: 06/05/18 00:30 06/05/18 00:30 Labs: Short CBC 06/05/18 Range/Units 00:30 WBC 6.3 (4.3-11.1) K/mcL Hgb 14.3 (12.9-16.9) g/dL Hct 41.4 (37.5-50.1) % Plt Count 221 (140-400) K/mcL BMP 06/05/18 00:30 Sodium 139 Potassium 3.5 Chloride 106 Carbon Dioxide 28 BUN 16 Creatinine 0.91 Glucose 106 H Calcium 9.5 Cardiac Enzymes 06/05/18 06/05/18 Range/Units 00:30 06:50 Troponin I < 0.03 < 0.03 (< 0.04) ng/mL Consult Discharge Plan - Plan Referrals: Cameron Chapin MD [Primary Care Provider] -
[2018-06-05] MEDS ORDERED: Aspirin 81 MG TAB.CHEW PO SCH (10:15)
[2018-06-05 11:02] VITALS: BP 130/84
--- NOTE | 2018-06-05 11:40 | Discharge Summary ---
<Ritchie Carlisle - Last Filed: 06/05/18 11:38> - NOTES TO OUTPATIENT PROVIDER Notes to Outpatient Provider: Patient admitted for chest pain. Initially was undergoing exercise stress test however he wanted to leave before this. Patient will follow-up with PCP to get this scheduled. Discharge and aspirin and statin. Orders not resulted at time of discharge: Pending orders 06/05/18 10:07 SP exercise stress ECG Routine 06/06/18 04:00 Lipid Panel AM 0400 Date of Encounter: 06/05/18 Time of Encounter: 11:38 - Discharge Diagnosis (1) Chest pain Priority: Primary Status: Acute Qualifiers: Chest pain type: unspecified Qualified Code(s): R07.9 - Chest pain, unspecified (2) DVT prophylaxis Priority: Secondary Status: Acute (3) History of recent stressful life event Priority: Secondary Status: Acute (4) Tobacco use Priority: Secondary Status: Acute Hospital course: Mr. Bennett is a 53 year old male admitted for chest pain that was left-sided worsening with stress. Reports he is undergoing divorce, lost his house, broke up with his girlfriend. He has had a lot of anxiety issues lately with racing thoughts. He was admitted for chest pain rule out. Troponin and EKG were within normal limits. Heart score was 3. Patient recently started smoking 5 weeks ago and has history of cardiovascular disease on his mother's side. Plan was to undergo exercise stress test tomorrow however patient says he would like to leave today and get a stress test outpatient. Patient exercises every day. He reports he will quit smoking. Patient explained that if his chest pain returns he is to come back to the emergency room. He is low to moderate risk of coronary artery disease. He will be discharged on aspirin, atorvastatin. He is also given hydroxyzine for anxiety. He needs to follow-up with his primary care physician the next 7 days to schedule a stress test as well as get evaluated for anxiety disorder. - Time Spent with Patient Total time spent providing and/or coordinating discharge services: - Discharge Medications Prescriptions: Atorvastatin [Lipitor] 40 mg PO HS #30 tablet HydrOXYzine 10 mg PO TID PRN #30 tablet PRN Reason: Anxiety Home Medications: Acetaminophen [Tylenol] 650 mg PO Q6HR PRN 03/15/17 [History] Aspirin Enteric Coated [Aspirin EC] 81 mg PO DAILY 03/15/17 [History] Atorvastatin [Lipitor] 40 mg PO HS #30 tablet 06/05/18 [Rx] HydrOXYzine 10 mg PO TID PRN #30 tablet 06/05/18 [Rx] Allergies/Adverse Reactions: 3 Allergy/AdvReac Type Severity Reaction Status Date / Time Anthrax Vaccine Allergy Swelling Verified 06/04/18 19:07 of Lip/Tongue/Throat Penicillins [PCN] Allergy Hives Verified 06/04/18 19:07 Date of admission: 06/04/18 20:29 Primary care physician: Cameron Chapin MD Discharging clinician: Ritchie Carlisle Anticipated date of discharge: 06/05/18 - Constitutional Vitals: Temp Pulse Resp BP Pulse Ox 98.1 F 60 17 130/84 96 06/05/18 10:58 06/05/18 10:58 06/05/18 10:58 06/05/18 10:58 06/05/18 10:58 General appearance: Present: cooperative, A&O X 3, pleasant, answers questions appropriately - Other Additional findings: General: Pleasant, anxious HEENT: Head atraumatic, normocephalic, EOMI, PERRL, neck nontender to palpation , absent lymphadenopathy, Moist Mucous Membranes, Heart: Regular rate and rhythm with no murmur Lungs: Clear to auscultation bilaterally Abdomen: Soft nontender, nondistended positive bowel sounds Skin: warm and dry, absent rash Extremities: Absent pedal edema, Neuro: Alert oriented 3 Vascular: Pedal and radial pulses 2 out of 4 - Patient Status Disposition: Home, Self-Care Condition: Fair Functional capacity at discharge: independent ambulation Overall status at discharge: patient is progressing back to baseline - Discharge Instructions Instructions: Hydroxyzine (By mouth), Atorvastatin (By mouth), Chest Pain (DC) , Anxiety (GEN) Follow Up With: Cameron Chapin MD [Primary Care Provider] - - Diet and Activity Activity: increase activity as tolerated Diet: low fat, low cholesterol <Stephanie Sorto - Last Filed: 06/05/18 12:33> Orders not resulted at time of discharge: Pending orders 06/05/18 10:07 SP exercise stress ECG Routine Date of Encounter: 06/05/18 - Discharge Diagnosis (1) DVT prophylaxis Status: Acute (2) Chest pain Status: Acute Qualifiers: Chest pain type: unspecified Qualified Code(s): R07.9 - Chest pain, unspecified (3) History of recent stressful life event Status: Acute (4) Tobacco use Status: Acute Hospital course: Mr. Bennett is a 53 year old male - Time Spent with Patient Total time spent providing and/or coordinating discharge services: Date of admission: 06/04/18 20:29 Primary care physician: Cameron Chapin MD - Constitutional Vitals: Temp Pulse Resp BP Pulse Ox 98.1 F 60 17 130/84 96 06/05/18 10:58 06/05/18 10:58 06/05/18 10:58 06/05/18 10:58 06/05/18 10:58 - Attending Attestation Patient was seen and examined. I agree with the discharge summary as dictated above by the resident physician. Discharge plans and recommendations were made under my direct supervision. Addendum entered and electronically signed by Ritchie Carlisle DO 11:45: Patient denies SI/HI. His risk for CAD is low to moderate. He reports "if I have a heart attack its on me."
--- NOTE | 2018-06-06 17:33 | Electrocardiograph Report ---
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
== END 2018-06-05 12:11 | disposition home or self-care (01) ==
LOC: EMEROO 18:38 → 2NENU 18:38
PROVIDERS: ADMIT Family Medicine; ATTEND Family Medicine